=== PATIENT | female | born 1980 | race Caucasian/White ===

== ENCOUNTER 2024-08-10 15:39 | Outpatient (CLI) | payer OTHER, SELFPAY ==
--- NOTE | ~2024-08-10 | CT_ITS ---
EXAMINATION: CT sinus wo con DATE: 08/10/2024 16:17 INDICATION: Chronic sinusitis. TECHNIQUE: Computed tomography (CT) of the paranasal sinuses was performed without intravenous contra st. Iterative reconstruction technique was employed. The dose-length product was 355.01 mGy-cm. COMPARISON: None FINDINGS: The frontal and ethmoid sinuses are clear. There is mild mucosal thickening in sphenoid sin us and the maxillary sinuses. There is a mucous retention cyst in right maxillary sinus. There is lef tward deviation of the nasal septum. The ostiomeatal units are patent. IMPRESSION: 1. Mild mucosal thickening in the paranasal sinuses. 2. Leftward deviation of the nasal septum. Reviewed, dictated and finalized at location A.
== END 2024-08-10 15:40 | disposition home or self-care (01) ==
LOC: ANHIMG 15:42
PROVIDERS: PCP Internal Medicine; Visit Provider Otolaryngology
DX: J32.9 Chronic sinusitis, unspecified (principal); J34.2 Deviated nasal septum
CPT/HCPCS: 70486

== ENCOUNTER 2025-01-16 09:15 | Day surgery (SDC) | payer OTHER, SELFPAY ==
[2024-09-27 12:08] VITALS: BMI 35.1
[2024-12-28 08:19] VITALS: BMI 33.0
[2025-01-16 09:46] VITALS: BP 117/80; PULSE 75; RESP 16; TEMP 36.2; O2SAT 99
[2025-01-16] MEDS: LACTATED RINGERS 1,000 ML 150 ML IV CONT (09:49)
--- NOTE | 2025-01-16 09:49 | WPDANESEPPF ---
Anes - Initial Pre Proc Eval Procedure: Operation Date: 01/16/25 11:00 Proposed Procedures p Screening Colonoscopy - Daniel Ayers MD Date/Time: 01/16/25 09:49 Surgeon: Daniel Ayers MD Pre Op Diagnosis: Neoplasm Screening Patient Data Age: 45 Gender: F Height: 1.57 m Weight: 82.45 kg Last Vital Signs Temp 36.2 C L 01/16/25 09:46 Pulse 75 01/16/25 09:46 Resp 16 01/16/25 09:46 BP 117/80 01/16/25 09:46 Pulse Ox 99 01/16/25 09:46 O2 Del Method Room Air 01/16/25 09:46 Allergies Allergy/AdvReac Type Severity Reaction Status Date / Time morphine Allergy Intermediate Itching Verified 01/16/25 09:45 Home Medications ?Medication ?Instructions ?Recorded ?Confirmed ?Type alprazolam 1 mg tablet 1 mg PO TID PRN anxiety 12/28/24 01/16/25 History aspirin 81 mg tablet,delayed 81 mg PO DAILY 12/28/24 01/16/25 History release (Adult Low Dose Aspirin) atorvastatin 10 mg tablet 10 mg PO DAILY 12/28/24 01/16/25 History famotidine 20 mg tablet 20 mg PO BID 12/28/24 01/16/25 History magnesium 500 mg tablet 500 mg PO DAILY 12/28/24 01/16/25 History mecobalamin (vitamin B12) 1,000 1,000 mcg PO DAILY 12/28/24 01/16/25 History mcg chewable tablet multivitamin (Daily Multi-Vitamin 1 tablet PO DAILY 12/28/24 01/16/25 History tablet) omeprazole 20 mg capsule,delayed 20 mg PO DAILY 12/28/24 01/16/25 History release Patient hx anesthesia problems: none Family hx anesthesia problems: none Results Review: All pre-operative results and documents have been reviewed as part of the pre-operative evaluation. [facility] Past Medical History Medical History (Updated 01/16/25 @ 09:50 by Kristian Hsu MD) Obesity Anxiety GERD (gastroesophageal reflux disease) Surgical History Surgical History (Updated 01/16/25 @ 09:50 by Kristian Hsu MD) History of cholecystectomy H/O: hysterectomy Social History Social History Smoking status: Current every day smoker Tobacco type: e-cigarettes/vaping Substance use: current Substance use type: marijuana Other substance usage details: daily Living arrangements: with family Spiritual care concerns: No Anes - Eval Final PreProcedure Day of Procedure 01/16/25 09:49 Patient weight: obese Heart: regular rate and rhythm Lungs: clear to auscultation Airway: Mallampati scale class II Neurological: alert and oriented Last oral intake: >/= 8 hours ASA classification: III Emergent: no Anesthetic plan: proceed Anesthesia type and monitoring: general GIVS and standard monitoring Results Review: All pre-operative results and documents have been reviewed as part of the pre-operative evaluation. Informed Consent: The patient's anesthetic plan and its attendant risks and benefits were discussed with the patient/family/POA. Questions were solicited and answers provided to the satisfaction of the patient/family/POA.
--- NOTE | 2025-01-16 10:19 | PM.IMHP ---
H&P: HPI History of Present Illness Date/Time: 01/16/25 10:19 Chief Complaint: Screening colonoscopy Narrative: This is the patient's first colonoscopy. There are no GI symptoms and there is no family history of colorectal cancer. Review of Systems Review of Systems: All systems reviewed & are unremarkable except as noted in HPI and below PMFSH Past Medical History Medical History (Updated 01/16/25 @ 10:20 by Daniel Ayers MD) Obesity Anxiety GERD (gastroesophageal reflux disease) Surgical History Surgical History (Updated 01/16/25 @ 09:50 by Kristian Hsu MD) History of cholecystectomy H/O: hysterectomy Social History Social History Smoking status: Current every day smoker Tobacco type: e-cigarettes/vaping Substance use: current Substance use type: marijuana Other substance usage details: daily Living arrangements: with family Spiritual care concerns: No Meds Home Medications and Allergies Home Medications ?Medication ?Instructions ?Recorded ?Confirmed ?Type alprazolam 1 mg tablet 1 mg PO TID PRN anxiety 12/28/24 01/16/25 History aspirin 81 mg tablet,delayed 81 mg PO DAILY 12/28/24 01/16/25 History release (Adult Low Dose Aspirin) atorvastatin 10 mg tablet 10 mg PO DAILY 12/28/24 01/16/25 History famotidine 20 mg tablet 20 mg PO BID 12/28/24 01/16/25 History magnesium 500 mg tablet 500 mg PO DAILY 12/28/24 01/16/25 History mecobalamin (vitamin B12) 1,000 1,000 mcg PO DAILY 12/28/24 01/16/25 History mcg chewable tablet multivitamin (Daily Multi-Vitamin 1 tablet PO DAILY 12/28/24 01/16/25 History tablet) omeprazole 20 mg capsule,delayed 20 mg PO DAILY 12/28/24 01/16/25 History release Allergies Allergy/AdvReac Type Severity Reaction Status Date / Time morphine Allergy Intermediate Itching Verified 01/16/25 09:45 Vital Signs Vital Signs - 24 hr 01/16/25 09:46 Temperature 97.2 F L Pulse Rate 75 Respiratory Rate 16 Blood Pressure 117/80 Pulse Oximetry 99 Oxygen Delivery Room Air Exam Const: General: cooperative and healthy appearing Resp: Effort & Inspection: normal respiratory effort and able to speak in complete sentences Auscultation: clear to auscultation bilaterally Cardio: Rate: regular rate Rhythm: regular rhythm GI: Inspection: normal to inspection GI Palp: No No hepatosplenomegaly present Auscultation: normal bowel sounds Rectal Exam: deferred Skin: General skin exam: normal color Psych: Appearance: grossly normal Mental Status: mental status grossly normal Assessment and Plan Assessment and plan (1) Encounter for screening colonoscopy for [id number] patient: Code(s): Z12.11 - Encounter for screening for malignant neoplasm of colon Status: Acute Assessment and Plan: The patient is deemed a good candidate for the procedure. Consent signed. Will proceed.
[2025-01-16] MEDS: SIMETHICONE ORAL SUSPENSION 20 MG/0.3 ML 30 ML BOTTLE 0.6 ML IRRIGATION (10:35)
--- OUTSIDE RECORDS SUMMARY | 2025-01-16 10:40 | XMS_ITS | Data Portability ---
Author Organization [facility] Address [address] [facility] [place] [address] Care Team Providers Care Population Health Manager Name Role Phone SARAH HODGE Primary Care Provider [phone] Assessment Encounter Date Assessment Date Assessment LastModified by Organization Details LastModified Time 09/23/2024 09/23/2024 GERD she is controlled on PPI and H2 sally needs colonoscopy continue with the medicines for anxiety we will look into ENT she apparently was referred to [facility] for surgical evaluation. Healthy lifestyle choices. I have discussed GLP 1 agents with her and she is not interested in them at this time. Follow up 4 months [email or web address] Not available 09/23/2024 21:04:47 01/06/2025 01/06/2025 she has seen ENT. Healthy lifestyle care instructions. We will add Prozac 20 mg for anxiety nicotine patch to help with her nicotine addiction follow up with me in 3 months has a colonoscopy scheduled later this month [email or web address] Not available 01/07/2025 15:01:55 Plan of Treatment Reminders Order Date Submit Date Provider Last Modified By Organization Details Last Modified Time Details Appointments ANY 15 2024 09:15A Chela Hodge MD Not available Not available Not available Lab lipid panel, serum 2023 024 THONG [facility], [address], [place], [address], 09/24/2024 07:10:07 CMP, serum or plasma 2023 024 THONG [facility], [address], [place], [address], 09/24/2024 07:10:08 CBC w/ auto diff 2023 024 HART [facility], [address], [place], [address], 09/24/2024 07:10:10 Referral rhinolo gy referra l 2023 024 debbie [facility], [address] [facility] , [address], [address], [place], [address], 12/02/2024 08:32:14 Procedures None recorde d. Surgeries None recorde d. Imaging CT, sinuses , w/o contras t [address], [place], [address], 08/17/2024 15:41:54 Medication Orders nicotin e 7 mg/24 hr daily transde rmal patch 2024 025 [id number], [address], [place], [place], [id number], 01/06/2025 15:33:23 nicotin e 21 mg/24 hr daily transde rmal patch 2024 025 [facility][id number], [address], [place], [place], [id number], 01/06/2025 15:33:23 nicotin e 14 mg/24 hr daily transde rmal patch 2024 025 [facility][id number], [address], [place], [place], [id number], 01/06/2025 15:33:23 fluoxet ine 20 mg capsule 2024 025 [id number], [address], [place], [place], [id number], 01/06/2025 15:33:23 amoxici llin 875 mg-pota ssium clavula guerda 125 mg tablet 2023 [facility] #[id number], [address], [place], [place], [id number], 09/06/2024 14:56:03 sulfame thoxazo le 800 mg-trim ethopri m 160 mg tablet 2023 024 [facility]ART [id number], [address], [place], [place], [id number], 07/19/2024 13:55:28 Patient TargetsNo targets recorded. Patient Instructions Encounter Date Encounter Id Patient Instructions Last Modified By Organization Details Last Modified Time 09/23/2024 [id number] A healthy lifestyle: care instructions [email or web address] Not available 09/23/2024 15:13:52 01/06/2025 [id number] A healthy lifestyle: care instructions [email or web address] Not available 01/06/2025 15:33:23 Reason for Referral Rhinology Referral for Devia alondra nasal septum Referring Physician: Kristian Cortez, Otolaryngology, Encounter Date: 09/06/2024 Results Created Date Observation Date Name Description Value Unit Range Abnormal Flag Note LastModifiedBy Organization Detail LastModifiedTime 09/23/2009/24/2024 LIPID PANEL cholesterol, total 240 mg/dL 100-19 9 above high normal Not Available [facility] ([facility]) [address] [facility], [place], [address], 09/24/2024 07:10:07 09/23/2009/24/2024 LIPID PANEL triglyceride s 278 mg/dL 0-149 above high normal Not Available [facility] ([facility]) [address] [facility], [place], [address], 09/24/2024 07:10:07 09/23/2009/24/2024 LIPID PANEL HDL cholesterol 61 mg/dL >39 Not Available [facility]) [address] [facility] [place], [address], 09/24/2024 07:10:07 09/23/20 24 09/24/2024 LIPID PANEL VLDL cholesterol chanel 49 mg/dL 5-40 above high normal Not Available [facility] ([facility]) [address] [place], [address], 09/24/2024 07:10:07 09/23/20 24 09/24/2024 LIPID PANEL LDL chol calc ([facility]) 130 mg/dL 0-99 above high normal Not Available [facility] ([facility]) [address] [place], [address], 09/24/2024 07:10:07 09/23/20 24 09/24/2024 COMP. METAB OLIC PANEL (14) glucose 97 mg/dL 70-99 Not Available [facility] ([facility]) [address] [place], [address], 09/24/2024 07:10:08 09/23/20 24 09/24/2024 COMP. METAB OLIC PANEL (14) BUN 12 mg/dL 6-24 Not Available [facility] ([facility]) [address] [place], [address], 09/24/2024 07:10:08 09/23/20 24 09/24/2024 COMP. METAB OLIC PANEL (14) creatinine 0.80 mg/dL 0.57-1 .00 Not Available [facility] ([facility]) [address] [place], [address], 09/24/2024 07:10:08 09/23/20 24 09/24/2024 COMP. METAB OLIC PANEL (14) eGFR 92 mL/mi n/1.7 3 >59 Not Available [facility] ([facility]) [address] [place], [address], 09/24/2024 07:10:08 09/23/20 24 09/24/2024 COMP. METAB OLIC PANEL (14) BUN/creatini ne ratio 15 9-23 Not Available [facility] ([facility]) [address] [facility], [place], [address], 09/24/2024 07:10:08 09/23/20 24 09/24/2024 COMP. METAB OLIC PANEL (14) sodium 138 mmol/ L 134-14 4 Not Available [facility] ([facility]) [address] [facility], [place], [address], 09/24/2024 07:10:08 09/23/20 24 09/24/2024 COMP. METAB OLIC PANEL (14) potassium 4.8 mmol/ L 3.5-5. 2 Not Available [facility] ([facility]) [address] [facility], [place], [address], 09/24/2024 07:10:08 09/23/20 24 09/24/2024 COMP. METAB OLIC PANEL (14) chloride 103 mmol/ L 96-106 Not Available [facility] ([facility]) [address] [facility], [place], [address], 09/24/2024 07:10:08 09/23/20 24 09/24/2024 COMP. METAB OLIC PANEL (14) carbon dioxide, total 22 mmol/ L 20-29 Not Available [facility] ([facility]) [address] [facility], [place], [address], 09/24/2024 07:10:08 09/23/20 24 09/24/2024 COMP. METAB OLIC PANEL (14) calcium 9.7 mg/dL 8.7-10 .2 Not Available [facility] ([facility]) [address] [place], [address], 09/24/2024 07:10:08 09/23/20 24 09/24/2024 COMP. METAB OLIC PANEL (14) protein, total 6.8 g/dL 6.0-8. 5 Not Available [facility] ([facility]) [address] [place], [address], 09/24/2024 07:10:08 09/23/20 24 09/24/2024 COMP. METAB OLIC PANEL (14) albumin 4.6 g/dL 3.9-4. 9 Not Available [facility] ([facility]) [address] [place], [address], 09/24/2024 07:10:08 09/23/20 24 09/24/2024 COMP. METAB OLIC PANEL (14) globulin, total 2.2 g/dL 1.5-4. 5 Not Available [facility] ([facility]) [address] [place], [address], 09/24/2024 07:10:08 09/23/20 24 09/24/2024 COMP. METAB OLIC PANEL (14) bilirubin, total 0.3 mg/dL 0.0-1. 2 Not Available [facility] ([facility]) [address] [place], [address], 09/24/2024 07:10:08 09/23/20 24 09/24/2024 COMP. METAB OLIC PANEL (14) alkaline phosphatase 65 IU/L 44-121 Not Available [facility] ([facility]) [address] [place], [address], 09/24/2024 07:10:08 09/23/20 24 09/24/2024 COMP. METAB OLIC PANEL (14) AST (SGOT) 16 IU/L 0-40 Not Available [facility] ([facility]) [address] [place], [address], 09/24/2024 07:10:08 09/23/20 24 09/24/2024 COMP. METAB OLIC PANEL (14) ALT (SGPT) 20 IU/L 0-32 Not Available [facility] ([facility]) [address] [facility], [place], [address], 09/24/2024 07:10:08 09/23/20 24 09/24/2024 CBC WITH DIFFE RENTI AL/PL ATELE T WBC 10.2 x10e3 /uL 3.4-10 .8 Eff ectiv e Decem prabhu 2023 [place] [id number] 5 WBC will be made* * non-o rdera ble as a stand -norah e order code. Not Available [facility] ([facility]) [address] [facility], [place], [address], 09/24/2024 07:10:10 09/23/20 24 09/24/2024 CBC WITH DIFFE RENTI AL/PL ATELE T RBC 4.63 x10e6 /uL 3.77-5 .28 Not Available [facility] ([facility]) [address] [facility], [place], [address], 09/24/2024 07:10:10 09/23/20 24 09/24/2024 CBC WITH DIFFE RENTI AL/PL ATELE T hemoglobin 14.5 g/dL 11.1-1 5.9 Not Available [facility] ([facility]) [address] [facility], [place], [address], 09/24/2024 07:10:10 09/23/20 24 09/24/2024 CBC WITH DIFFE RENTI AL/PL ATELE T hematocrit 43.2 % 34.0-4 6.6 Not Available [facility] ([facility]) [address] [facility], [place], [address], 09/24/2024 07:10:10 09/23/20 24 09/24/2024 CBC WITH DIFFE RENTI AL/PL ATELE T MCV 93 fL 79-97 Not Available [facility] ([facility]) [address] [facility], [place], [address], 09/24/2024 07:10:10 09/23/20 24 09/24/2024 CBC WITH DIFFE RENTI AL/PL ATELE T MCH 31.3 pg 26.6-3 3.0 Not Available [facility] ([facility]) [address] [facility], [place], [address], 09/24/2024 07:10:10 09/23/20 24 09/24/2024 CBC WITH DIFFE RENTI AL/PL ATELE T MCHC 33.6 g/dL 31.5-3 5.7 Not Available [facility] ([facility]) [address] [facility], [place], [address], 09/24/2024 07:10:10 09/23/20 24 09/24/2024 CBC WITH DIFFE RENTI AL/PL ATELE T RDW 12.8 % 11.7-1 5.4 Not Available [facility] ([facility]) [address] [facility], [place], [address], 09/24/2024 07:10:10 09/23/20 24 09/24/2024 CBC WITH DIFFE RENTI AL/PL ATELE T platelets 649 x10e3 /uL 150-45 0 above high normal Not Available [facility] ([facility]) [address] [facility], [place], [address], 09/24/2024 07:10:10 09/23/20 24 09/24/2024 CBC WITH DIFFE RENTI AL/PL ATELE T neutrophils 50 % notest ab. Not Available [facility] ([facility]) [address] [facility], [place], [address], 09/24/2024 07:10:10 09/23/20 24 09/24/2024 CBC WITH DIFFE RENTI AL/PL ATELE T lymphs 35 % notest ab. Not Available [facility] ([facility]) [address] [facility], [place], [address], 09/24/2024 07:10:10 09/23/20 24 09/24/2024 CBC WITH DIFFE RENTI AL/PL ATELE T monocytes 11 % notest ab. Not Available [facility] ([facility]) [address] [facility], [place], [address], 09/24/2024 07:10:10 09/23/20 24 09/24/2024 CBC WITH DIFFE RENTI AL/PL ATELE T eos 2 % notest ab. Not Available [facility] ([facility]) [address] [facility], [place], [address], 09/24/2024 07:10:10 09/23/20 24 09/24/2024 CBC WITH DIFFE RENTI AL/PL ATELE T basos 2 % notest ab. Not Available [facility] ([facility]) [address] [facility], [place], [address], 09/24/2024 07:10:10 09/23/20 24 09/24/2024 CBC WITH DIFFE RENTI AL/PL ATELE T neutrophils (absolute) 5.1 x10e3 /uL 1.4-7. 0 Not Available [facility] ([facility]) [address] [facility], [place], [address], 09/24/2024 07:10:10 09/23/20 24 09/24/2024 CBC WITH DIFFE RENTI AL/PL ATELE T lymphs (absolute) 3.6 x10e3 /uL 0.7-3. 1 above high normal Not Available [facility] ([facility]) [address] [place], [address], 09/24/2024 07:10:10 09/23/20 24 09/24/2024 CBC WITH DIFFE RENTI AL/PL ATELE T monocytes(ab solute) 1.1 x10e3 /uL 0.1-0. 9 above high normal Not Available [facility] ([facility]) [address] [place], [address], 09/24/2024 07:10:10 09/23/20 24 09/24/2024 CBC WITH DIFFE RENTI AL/PL ATELE T eos (absolute) 0.2 x10e3 /uL 0.0-0. 4 Not Available [facility] ([facility]) [address] [facility], [place], [address], 09/24/2024 07:10:10 09/23/20 24 09/24/2024 CBC WITH DIFFE RENTI AL/PL ATELE T baso (absolute) 0.2 x10e3 /uL 0.0-0. 2 Not Available [facility] ([facility]) [address] [facility], [place], [address], 09/24/2024 07:10:10 09/23/20 24 09/24/2024 CBC WITH DIFFE RENTI AL/PL ATELE T immature granulocytes 0 % notest ab. Not Available [facility] ([facility]) [address] [facility], [place], [address], 09/24/2024 07:10:10 09/23/20 24 09/24/2024 CBC WITH DIFFE RENTI AL/PL ATELE T immature grans (abs) 0.0 x10e3 /uL 0.0-0. 1 Not Available [facility] ([facility]) [address] [facility], [place], [address], 09/24/2024 07:10:10 11/18/19 25 11/19/2024 Cycli c citru llina alondra pepti de IgG Ab [Unit s/vol ume] in Serum or Plasm a cyclic citrullinate d peptide IgG Ab [units/volum e] in serum or plasma high: 3U/mL CCP IGG <0.5 <3.0 U/mL 11/18 11:37 PM [facility] Not Available Not Available 12/08/2024 14:25:36 11/18/19 25 11/19/2024 Cycli c citru llina alondra pepti de IgG Ab [Unit s/vol ume] in Serum or Plasm a Unknown Analyte Antibo dy testin g was perfor med by multip bonny flow immuno assay on the [employer] x platfo rm. Antib claudia testi ng was perfo rmed by multi plex flow immun oassa y on the Bio[employer] ex platf orm. Not Available Not Available 12/08/2024 14:25:36 11/18/19 25 11/19/2024 Cycli c citru llina alondra pepti de IgG Ab [Unit s/vol ume] in Serum or Plasm a interpretati on and review of laboratory results Normal Not Available Not Available 11/26 14:25:36 11/18/19 25 11/18/2024 Iron panel - Serum or Plasm a iron [mass/volume ] in serum or plasma 152 text: 25 - 156 mcg/dL IRON 152 25 - 156 mcg/d L 11/18 12:11 PM [facility] [email or web address] [facility] R LAB Not Available Not Available 12/08/2024 14:25:36 11/18/19 25 11/18/2024 Iron panel - Serum or Plasm a transferrin [mass/volume ] in serum or plasma 302 mg/dL low: 180mg/ dLhigh : 382mg/ dL TRANS LORENZO N 302 180 - 382 mg/dL 11/18 12:11 PM [facility] [employer] [email or web address] [facility] H [facility] R LAB Not Available Not Available 12/08/2024 14:25:36 11/18/19 25 11/18/2024 Iron panel - Serum or Plasm a iron binding capacity [mass/volume ] in serum or plasma 378 text: 265 - 497 mcg/dL TIBC, CALCU LATED 378 265 - 497 mcg/d L 11/18 12:11 PM [facility] [employer] [email or web address] [facility] LAB Not Available Not Available 12/08/2024 14:25:36 11/18/1911/18/2024 Iron panel - Serum or Plasm a iron saturation [mass fraction] in serum or plasma 40 % low: 15%hig h: 62% % SATUR ATION * 40 15 - 62 % 11/18 12:11 PM [facility] Not Available Not Available 12/08/2024 14:25:36 11/18/19 25 11/18/2024 Iron panel - Serum or Plasm a interpretati on and review of laboratory results Normal Not Available Not Available 11/26 14:25:36 11/18/19 25 11/21/2024 Eryth ropoi etin (EPO) [Unit s/vol ume] in Serum or Plasm a erythropoiet in (epo) [units/volum e] in serum or plasma 5 text: 2.6 - 18.5 mIU/mL ERYTH ROPOI ETIN, SERUM 5.0 2.6 - 18.5 mIU/m L 11/21 1:39 PM [facility] AL LABOR ATORI ES Not Available Not Available 12/08/2024 14:25:35 11/18/19 25 11/18/2024 CBC W Auto Diffe renti al panel - Blood leukocytes [#/volume] in blood by automated count 13 text: 4.00 - 12.00 10(3)/ mcL high WBC 13.00 (H) 4.00 - 12.00 10(3) /mcL 11/18 11:49 AM [facility] LAB Not Available Not Available 12/08/2024 14:25:35 11/18/19 25 11/18/2024 CBC W Auto Diffe renti al panel - Blood erythrocytes [#/volume] in blood by automated count 4.74 text: 3.80 - 5.30 10(6)/ mcL RBC 4.74 3.80 - 5.30 10(6) /mcL 11/18 11:49 AM [facility] LAB Not Available Not Available 12/08/2024 14:25:35 11/18/19 25 11/18/2024 CBC W Auto Diffe renti al panel - Blood hemoglobin [mass/volume ] in blood 15 g/dL low: 12g/dL high: 15.8g/ dL HEMOG LOBIN (HGB) 15.0 12.0 - 15.8 g/dL 11/18 11:49 AM [facility] Not Available Not Available 12/08/2024 14:25:35 11/18/19 25 11/18/2024 CBC W Auto Diffe renti al panel - Blood hematocrit [volume fraction] of blood by automated count 43.9 % low: 36%hig h: 47% HEMAT OCRIT (HCT) 43.9 36.0 - 47.0 % 11/18 11:49 AM [facility] Not Available Not Available 12/08/2024 14:25:35 11/18/19 25 11/18/2024 CBC W Auto Diffe renti al panel - Blood MCV [entitic volume] by automated count 92.6 fL low: 82fLhi gh: 96fL MCV 92.6 82.0 - 96.0 fL 11/18 11:49 AM [facility] Not Available Not Available 12/08/2024 14:25:35 11/18/19 25 11/18/2024 CBC W Auto Diffe renti al panel - Blood MCH [entitic mass] by automated count 31.6 pg low: 26pghi gh: 34pg MCH 31.6 26.0 - 34.0 pg 11/18 11:49 AM [facility] Not Available Not Available 12/08/2024 14:25:35 11/18/19 25 11/18/2024 CBC W Auto Diffe renti al panel - Blood MCHC [mass/volume ] by automated count 34.2 g/dL low: 31g/dL high: 36g/dL MCHC 34.2 31.0 - 36.0 g/dL 11/18 11:49 AM [facility] Not Available Not Available 12/08/2024 14:25:35 11/18/19 25 11/18/2024 CBC W Auto Diffe renti al panel - Blood platelets [#/volume] in blood 626 text: 140 - 440 10(3)/ mcL high PLATE LET COUNT 626 (H) 140 - 440 10(3) /mcL 11/18 11:49 AM [facility] Not Available Not Available 12/08/2024 14:25:35 11/18/19 25 11/18/2024 CBC W Auto Diffe renti al panel - Blood erythrocyte distribution width [ratio] by automated count 13.2 % low: 11.8%h igh: 15.5% RDW 13.2 11.8 - 15.5 % 11/18 11:49 AM [facility] Not Available Not Available 12/08/2024 14:25:35 11/18/19 25 11/18/2024 CBC W Auto Diffe renti al panel - Blood platelet mean volume [entitic volume] in blood by automated count 9.1 fL low: 9.7fLh igh: 12.4fL low MPV 9.1 (L) 9.7 - 12.4 fL 11/18 11:49 AM [facility] Not Available Not Available 12/08/2024 14:25:35 11/18/19 25 11/18/2024 CBC W Auto Diffe renti al panel - Blood neutrophils/ 100 leukocytes in blood by automated count 58.9 % low: 47%hig h: 73% NEUTR OPHIL S 58.9 47.0 - 73.0 % 11/18 11:49 AM [facility] Not Available Not Available 12/08/2024 14:25:35 11/18/19 25 11/18/2024 CBC W Auto Diffe renti al panel - Blood lymphocytes/ 100 leukocytes in blood by automated count 30.8 % low: 18%hig h: 42% LYMPH OCYTE S 30.8 18.0 - 42.0 % 11/18 11:49 AM [facility] Not Available Not Available 12/08/2024 14:25:35 11/18/19 25 11/18/2024 CBC W Auto Diffe renti al panel - Blood monocytes/10 0 leukocytes in blood by automated count 7.6 % low: 4%high : 12% MONOC YTES 7.6 4.0 - 12.0 % 11/18 11:49 AM [facility] Not Available Not Available 12/08/2024 14:25:35 11/18/19 25 11/18/2024 CBC W Auto Diffe renti al panel - Blood eosinophils/ 100 leukocytes in blood by automated count 1.6 % low: 0%high : 5% EOSIN OPHIL S 1.6 0.0 - 5.0 % 11/18 11:49 AM [facility] Not Available Not Available 12/08/2024 14:25:35 11/18/19 25 11/18/2024 CBC W Auto Diffe renti al panel - Blood basophils/10 0 leukocytes in blood by automated count 1.1 % low: 0%high : 1% high BASOP HILS 1.1 (H) 0.0 - 1.0 % 11/18 11:49 AM [facility] Not Available Not Available 12/08/2024 14:25:35 11/18/19 25 11/18/2024 CBC W Auto Diffe renti al panel - Blood neutrophils [#/volume] in blood by automated count 7.66 text: 1.60 - 7.70 10(3)/ mcL ABSOL NISQUALLY NEUTR OPHIL S 7.66 1.60 - 7.70 10(3) /mcL 11/18 11:49 AM [facility] Not Available Not Available 12/08/2024 14:25:35 11/18/19 25 11/18/2024 CBC W Auto Diffe renti al panel - Blood lymphocytes [#/volume] in blood by automated count 4 text: 1.30 - 3.20 10(3)/ mcL high ABSOL NISQUALLY LYMPH OCYTE S 4.00 (H) 1.30 - 3.20 10(3) /mcL 11/18 11:49 AM [facility] C[facility] LAB Not Available Not Available 12/08/2024 14:25:35 11/18/19 25 11/18/2024 CBC W Auto Diffe renti al panel - Blood monocytes [#/volume] in blood by automated count 0.99 text: 0.20 - 1.00 10(3)/ mcL ABSOL NISQUALLY MONOC YTES 0.99 0.20 - 1.00 10(3) /mcL 11/18 11:49 AM [facility] Not Available Not Available 12/08/2024 14:25:35 11/18/19 25 11/18/2024 CBC W Auto Diffe renti al panel - Blood eosinophils [#/volume] in blood by automated count 0.21 text: 0.00 - 0.40 10(3)/ mcL ABSOL NISQUALLY EOSIN OPHIL 0.21 0.00 - 0.40 10(3) /mcL 11/18 11:49 AM [facility] Not Available Not Available 12/08/2024 14:25:35 11/18/19 25 11/18/2024 CBC W Auto Diffe renti al panel - Blood basophils [#/volume] in blood by automated count 0.14 text: 0.00 - 0.10 10(3)/ mcL high ABSOL NISQUALLY BASOP HILS 0.14 (H) 0.00 - 0.10 10(3) /mcL 11/18 11:49 AM [facility] Not Available Not Available 12/08/2024 14:25:35 11/18/19 25 11/18/2024 CBC W Auto Diffe renti al panel - Blood nucleated erythrocytes /100 leukocytes [ratio] in blood 0 NRBC PER 100 WBC 0 11/18 11:49 AM [facility] LAB Not Available Not Available 12/08/2024 14:25:35 11/18/19 25 11/18/2024 CBC W Auto Diffe renti al panel - Blood interpretati on and review of laboratory results Abnorm al Not Available Not Available 14:25:35 11/18/19 25 11/21/2024 PERIP HERAL BLOOD , FLOW CYTOM ETRY pathology report final diagnosis narrative Periph eral blood, flow cytome tric analys is: - No abnorm al lympho id or progen itor cell popula tion is detect ed. FINAL DIAGN OSIS Perip heral blood , flow cytom etric jaxon sis: - No abnor mal lymph oid or proge nitor cell popul ation is detec alondra. 11/21 1:07 PM [facility] [employer] Elect radha watson kimo d by Peg matthews MD on 2024 at 1306 CHANNEL CEMENTER Not Available Not Available 12/08/2024 14:25:35 11/18/19 25 11/21/2024 PERIP HERAL BLOOD , FLOW CYTOM ETRY clinical information Mild lympho cytosi s Clini chanel Infor matio n Mild lymph ocyto sis 11/21 1:07 PM [facility] [employer] Not Available Not Available 12/08/2024 14:25:35 11/18/19 25 11/21/2024 PERIP HERAL BLOOD , FLOW CYTOM ETRY specimen source Receiv ed in an EDTA antico agulat ed tube is 1 mL periph eral blood. Speci men Sourc e Recei linda in an EDTA antic oagul ated tube is 1 mL perip heral blood . 11/21 1:07 PM [facility] Not Available Not Available 12/08/2024 14:25:35 11/18/19 25 11/21/2024 PERIP HERAL BLOOD , FLOW CYTOM ETRY pathology report microscopic observation narrative other stain Periph eral blood smear review shows a hetero geneou s WBC popula tion. Specim en proces sed [facility]. This docume nt was comple alondra utiliz ing speech recogn ition softwa re. Gramma tical errors , random word insert ions, pronou n errors , and incomp lete senten rishi are an occasi onal conseq uence of this system due to softwa re limita tions, ambien t noise, and hardwa re issues . Any formal questi ons or concer ns about the conten t, text or inform ation contai beverley within the body of this dictat ion should be direct ly addres sed to the provid er for clarif icatio n. Micro scopi c Descr iptio n Perip heral blood smear revie w shows a heter ogene ous WBC popul ation . [facility]i [facility] [place]. This docum ent was compl eted utili zing speec h recog nitio n softw are. Gramm atica l error s, rando m word inser tions , prono un error s, and incom plete sente nces are an occas ional conse quenc e of this syste m due to softw are limit ation s, ambie nt noise , and hardw are issue s. Any forma l quest ions or joselyn rns about the marianna nt, text or infor matio n conta ined withi n the body of this dicta tion shoul d be direc tly addre ssed to the provi michele for ashlee ficat ion. 11/21 1:07 PM [facility] Not Available Not Available 12/08/2024 14:25:35 11/18/19 25 11/21/2024 PERIP HERAL BLOOD , FLOW CYTOM ETRY immunophenot ypic findings Flow cytome tric analys is shows a hetero geneou s cellul ar popula tion. Blasts are not increa sed. Immuno phenot ypical ly unrema rkable T-cell s (CD4:C D8 = 4.5) and polycl onal B-cell s are presen t. CELL POPULA TIONS: 52% granul ocytes , 6% monocy maris, 21% T-cell s, 3% B-cell s, <1% blasts . Immun ophen otypi c Findi ngs Flow cytom etric jaxon sis shows a heter ogene ous cellu lar popul ation . Blast s are not incre ased. Immun ophen otypi chemo unrem arkab le T-allison ls (CD4: CD8 = 4.5) and polyc lonal B-allison ls are prese nt. CELL POPUL ATION S: 52% granu locyt es, 6% monoc ytes, 21% T-allison ls, 3% B-allison ls, <1% blast s. 11/21 1:07 PM [facility] Not Available Not Available 12/08/2024 14:25:35 11/18/19 25 11/21/2024 PERIP HERAL BLOOD , FLOW CYTOM ETRY immunophenot yping study Flow marker s perfor med (23): CD2, CD3, CD4, CD5, CD7, CD8, CD10, CD13, CD15, CD19, CD20, CD33, CD34, CD38, CD45, CD56, CD117, CD123, CD200, kappa, lambda , HLA-DR , TCR gamma/ delta This test was develo ped and its perfor valerie charac terist ics determ ined by [facility]. It has not been cleare d or approv ed by the U.S. Food and Drug Admini strati on. Pheno typin g Marke rs Utili zed Flow marke rs perfo rmed (23): CD2, CD3, CD4, CD5, CD7, CD8, CD10, CD13, CD15, CD19, CD20, CD33, CD34, CD38, CD45, CD56, CD117 , CD123 , CD200 , kappa , lambd a, HLA-D R, TCR gamma /delt a This test was devel oped and its perfo rmanc e jone cteri stics deter mined by [facility] [email or web address] . It has not been clear ed or appro linda by the U.S. Food and Drug Admin istra tion. 11/21 1:07 PM [facility] Not Available Not Available 12/08/2024 14:25:35 11/18/19 25 11/21/2024 PERIP HERAL BLOOD , FLOW CYTOM ETRY case report Flow Cytome try Report Case: [id number] Author izing Provid er: Iva Stephenson PAC [facility] alondra: 2024 11:34 AM Orderi ng Locati on: [facility] ed: 2024 11:34 AM [facility] Oncnyla Acosta es Pathol ogist: Jimbo Uriostegui MD Specim en: Blood Case Repor t Flow Cytom etry Repor t Case: [id number] Autho rielena g Provi michele: Meka Godinez PAC Colle cted: 11/18 11:34 AM [facility] ing [facility] 11:34 [facility] Patho logis t: Peg Mora MD Speci men: Blood 11/21 1:07 PM [facility] Not Available Not Available 12/08/2024 14:25:35 11/18/19 25 11/23/2024 JAK2 gene p.Perlita 617Ph e [Pres ence] in Blood or Tissu e by Fin [employer] metho d jak2 gene.P.val61 7phe mutant/mehrdad l in blood or tissue by molecular genetics method see interp retati on JAK2 RESUL T see inter preta tion 11/23 9:54 AM [facility] Not Available Not Available 12/08/2024 14:25:35 11/18/19 25 11/23/2024 JAK2 gene p.Perlita 617Ph e [Pres ence] in Blood or Tissu e by [employer] metho d jak2 gene [id number] [presence] in blood or tissue by molecular genetics method SEE NOTE 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 SEE NOTE 11/23 9:54 AM [facility] AT[facility]I ES Not Available Not Available 12/08/2024 14:25:35 11/18/19 25 11/21/2024 Immun oglob ulin light chain s.varsha e panel - Serum kappa light chains.free [mass/volume ] in serum 13.27 mg/L low: 3.3mg/ Lhigh: 19.4mg /L Free [place] [facility] 13.27 3.30 - 19.40 mg/L 11/21 9:48 AM [facility] Not Available Not Available 12/08/2024 14:25:35 11/18/19 25 11/21/2024 Immun oglob ulin light chain s.varsha e panel - Serum lambda light chains.free [mass/volume ] in serum or plasma 12.09 mg/L low: 5.71mg /Lhigh : 26.3mg /L Free [place] [facility] 12.09 5.71 - 26.30 mg/L 11/21 9:48 AM [facility] Not Available Not Available 12/08/2024 14:25:35 11/18/19 25 11/21/2024 Immun oglob ulin light chain s.varsha e panel - Serum kappa light chains.free/ lambda light chains.free [mass ratio] in serum 1.1 low: 0.26hi gh: 1.65 free darvin bertrand ratio 1.10 0.26 - 1.65 11/21 9:48 AM [facility] Not Available Not Available 12/08/2024 14:25:35 11/18/19 25 11/21/2024 Immun oglob ulin light chain s.varsha e panel - Serum interpretati on and review of laboratory results Normal Not Available Not Available 11/26 14:25:35 11/18/19 25 11/18/2024 Cobal fox (Veena min B12) [Mass /volu me] in Serum or Plasm a cobalamin (vitamin B12) [mass/volume ] in serum or plasma 791 pg/mL low: 213pg/ mLhigh : 816pg/ mL VITAM IN B12 791 213 - 816 pg/mL 11/18 12:40 PM [facility] Not Available Not Available 12/08/2024 14:25:35 11/18/19 25 11/18/2024 Cobal fox (Veena min B12) [Mass /volu me] in Serum or Plasm a interpretati on and review of laboratory results Normal Not Available Not Available 11/26 14:25:35 11/18/19 25 11/18/2024 Eryth rocyt e sedim entat ion rate erythrocyte sedimentatio n rate high: 20mm/h ESR (SED RATE, ERYTH ROCYT E SEDIM ENTAT ION RATE) <1 <20 mm/h 11/18 11:55 AM [facility] Not Available Not Available 12/08/2024 14:25:35 11/18/19 25 11/18/2024 Eryth rocyt e sedim entat ion rate interpretati on and review of laboratory results Normal Not Available Not Available 11/26 14:25:35 11/18/19 25 11/18/2024 Rheum atoid facto r [Unit s/vol ume] in Serum or Plasm a rheumatoid factor [units/volum e] in serum or plasma text: <30 IU/mL RHEUM ATOID FACTO R QT <13 <30 IU/mL 11/18 12:09 PM [facility] Not Available Not Available 12/08/2024 14:25:35 11/18/19 25 11/18/2024 Rheum atoid facto r [Unit s/vol ume] in Serum or Plasm a Unknown Analyte RHEUMA TOID FACTOR S CAN BE FOUND IN RHEUMA TOID ARTHRI TIS, SYPHIL IS, VIRAL INFECT IONS, LEPROS Y, CHRONI C LIVER DISEAS E, NEOPLA SMS, AND OTHER INFLAM MATORY CONDIT IONS. RF PREVAL ENCE ALSO INCREA SES WITH AGE. THUS A POSITI VE TEST IS NOT RESTRI CTED TO RA. CONVER SELY, A NEGATI VE TEST DOES NOT RULE OUT RA, RHEUMA TOID FACTOR S ARE NOT DETECT ABLE IN 10% OF ADULTS WITH THE DISEAS E. RHEUM ATOID FACTO RS CAN BE FOUND IN RHEUM ATOID ARTHR ITIS, SYPHI LIS, VIRAL INFEC TIONS , LEPRO SY, CHRON IC LIVER DISEA SE, NEOPL ASMS, AND OTHER INFLA MMATO RY CONDI TIONS . RF PREVA LENCE ALSO INCRE ASES WITH AGE. THUS A POSIT LEILANI TEST IS NOT RESTR ICTED TO RA. CONVE RSELY , A NEGAT LEILANI TEST DOES NOT RULE OUT RA, RHEUM ATOID FACTO RS ARE NOT DETEC TABLE IN 10% OF ADULT S WITH THE DISEA SE. Not Available Not Available 12/08/2024 14:25:35 11/18/19 25 11/18/2024 Rheum atoid facto r [Unit s/vol ume] in Serum or Plasm a interpretati on and review of laboratory results Normal Not Available Not Available 11/26 14:25:35 11/18/19 25 11/18/2024 Lacta te dehyd rogen ase [Enzy matic activ ity/v olume ] in Serum or Plasm a by Lacta te to pyruv ate react ion lactate dehydrogenas e [enzymatic activity/vol ume] in serum or plasma by lactate to pyruvate reaction 187 U/L low: 125U/L high: 220U/L LDH 187 125 - 220 U/L 11/18 12:11 PM [facility] Not Available Not Available 12/08/2024 14:25:35 11/18/19 25 11/18/2024 Lacta te dehyd rogen ase [Enzy matic activ ity/v olume ] in Serum or Plasm a by Lacta te to pyruv ate react ion interpretati on and review of laboratory results Normal Not Available Not Available 11/26 14:25:35 11/18/19 25 11/22/2024 Prote in elect ropho resis and Immun oglob ulins panel - Serum protein [mass/volume ] in serum or plasma 7 g/dL low: 6g/dLh igh: 8g/dL TOTAL PROTE IN 7.0 6.0 - 8.0 g/dL 11/22 2:31 PM [facility] Not Available Not Available 12/08/2024 14:25:35 11/18/19 25 11/22/2024 Prote in elect ropho resis and Immun oglob ulins panel - Serum albumin/prot ein.total in serum or plasma by electrophore sis 62.6 % low: 55.8%h igh: 66.7% % ALBUM IN 62.6 55.8 - 66.7 % 11/22 2:31 PM [facility] Not Available Not Available 12/08/2024 14:25:35 11/18/19 25 11/22/2024 Prote in elect ropho resis and Immun oglob ulins panel - Serum albumin [mass/volume ] in serum or plasma by electrophore sis 4.4 g/dL low: 2.5g/d Lhigh: 5.4g/d L ALBUM IN SERUM 4.4 2.5 - 5.4 g/dL 11/22 2:31 PM [facility] Not Available Not Available 12/08/2024 14:25:35 11/18/19 25 11/22/2024 Prote in elect ropho resis and Immun oglob ulins panel - Serum alpha 1 globulin/pro tein.total in serum or plasma by electrophore sis 1.9 % low: 2.9%hi gh: 4.9% low % ALPHA 1 GLOBU MURALI 1.9 (L) 2.9 - 4.9 % 11/22 2:31 PM [facility] Not Available Not Available 12/08/2024 14:25:35 11/18/19 25 11/22/2024 Prote in elect ropho resis and Immun oglob ulins panel - Serum alpha 1 globulin [mass/volume ] in serum or plasma by electrophore sis 0.1 g/dL low: 0.2g/d Lhigh: 0.4g/d L low ALPHA 1 0.1 (L) 0.2 - 0.4 g/dL 11/22 2:31 PM [facility] Not Available Not Available 12/08/2024 14:25:35 11/18/19 25 11/22/2024 Prote in elect ropho resis and Immun oglob ulins panel - Serum alpha 2 globulin/pro tein.total in serum or plasma by electrophore sis 9.6 % low: 7.1%hi gh: 11.8% % ALPHA 2 GLOBU MURALI 9.6 7.1 - 11.8 % 11/22 2:31 PM [facility] Not Available Not Available 12/08/2024 14:25:35 11/18/19 25 11/22/2024 Prote in elect ropho resis and Immun oglob ulins panel - Serum alpha 2 globulin [mass/volume ] in serum or plasma by electrophore sis 0.7 g/dL low: 0.5g/d Lhigh: 1g/dL ALPHA 2 0.7 0.5 - 1.0 g/dL 11/22 2:31 PM CH[facility] CEMENTER [facility] Not Available Not Available 12/08/2024 14:25:35 11/18/19 25 11/22/2024 Prote in elect ropho resis and Immun oglob ulins panel - Serum beta globulin/pro tein.total in serum or plasma by electrophore sis 12.8 % low: 8.4%hi gh: 13.1% % BETA 12.8 8.4 - 13.1 % 11/22 2:31 PM [facility] Not Available Not Available 12/08/2024 14:25:35 11/18/19 25 11/22/2024 Prote in elect ropho resis and Immun oglob ulins panel - Serum beta globulin [mass/volume ] in serum or plasma by electrophore sis 0.9 g/dL low: 0.5g/d Lhigh: 1.1g/d L BETA- GLOBU MURALI 0.9 0.5 - 1.1 g/dL 11/22 2:31 PM [facility] Not Available Not Available 12/08/2024 14:25:35 11/18/19 25 11/22/2024 Prote in elect ropho resis and Immun oglob ulins panel - Serum gamma globulin/pro tein.total in serum or plasma by electrophore sis 13.1 % low: 11.1%h igh: 18.8% % GAMMA GLOBU MURALI 13.1 11.1 - 18.8 % 11/22 2:31 PM [facility] Not Available Not Available 12/08/2024 14:25:35 11/18/19 25 11/22/2024 Prote in elect ropho resis and Immun oglob ulins panel - Serum gamma globulin [mass/volume ] in serum or plasma by electrophore sis 0.9 g/dL low: 0.7g/d Lhigh: 1.5g/d L GAMMA 0.9 0.7 - 1.5 g/dL 11/22 2:31 PM [facility] Not Available Not Available 12/08/2024 14:25:35 11/18/19 25 11/22/2024 Prote in elect ropho resis and Immun oglob ulins panel - Serum IgG [mass/volume ] in serum or plasma 894 mg/dL low: 552mg/ dLhigh : 1631mg /dL IMMUN OGLOB ULIN G 894 552 - 1,631 mg/dL 11/22 2:31 PM CH[facility] Not Available Not Available 12/08/2024 14:25:35 11/18/19 25 11/22/2024 Prote in elect ropho resis and Immun oglob ulins panel - Serum IgA [mass/volume ] in serum or plasma 116 mg/dL low: 65mg/d Lhigh: 421mg/ dL IMMUN OGLOB ULIN A 116 65 - 421 mg/dL 11/22 2:31 PM [facility] Not Available Not Available 12/08/2024 14:25:35 11/18/19 25 11/22/2024 Prote in elect ropho resis and Immun oglob ulins panel - Serum IgM [mass/volume ] in serum or plasma 112 mg/dL low: 33mg/d Lhigh: 293mg/ dL IMMUN OGLOB ULIN M 112 33 - 293 mg/dL 11/22 2:31 PM [facility] Not Available Not Available 12/08/2024 14:25:35 11/18/19 25 11/22/2024 Prote in elect ropho resis and Immun oglob ulins panel - Serum protein fractions [interpretat ion] in serum or plasma by immunofixati on No abnorm al protei n band is detect ed by serum protei n electr ophore sis. Serum immuno fixati on electr ophore sis is negati ve for monocl onal immuno globul ins. Review ed by Lis Kim, Ph.D. INTER PRETA TION SERUM No abnor mal prote in band is detec alondra by serum prote in elect ropho resis . Serum immun ofixa tion elect ropho resis is negat leilani for monoc lonal immun oglob ulins . Revie wed by Pamela Kim, Ph.D. 11/22 2:31 PM [facility] Not Available Not Available 12/08/2024 14:25:35 11/18/19 25 11/22/2024 Prote in elect ropho resis and Immun oglob ulins panel - Serum albumin/glob ulin [mass ratio] in serum or plasma by electrophore sis 1.7 A/G RATIO , SERUM 1.7 11/22 2:31 PM [facility] Not Available Not Available 12/08/2024 14:25:35 11/18/19 25 11/22/2024 Prote in elect ropho resis and Immun oglob ulins panel - Serum Unknown Analyte Review ed by Jimbo Uriostegui M.D. Revie wed by Peg matthews M.D. Not Available Not Available 12/08/2024 14:25:35 11/18/19 25 11/22/2024 Prote in elect ropho resis and Immun oglob ulins panel - Serum interpretati on and review of laboratory results Abnorm al Not Available Not Available 14:25:35 11/18/19 25 11/18/2024 Folat e [Mass /volu me] in Serum or Plasm a folate [mass/volume ] in serum or plasma 16 NG/mL low: 7NG/mL high: 31.4NG /mL FOLAT E 16.0 7.0 - 31.4 ng/mL 11/18 12:40 PM [facility] Not Available Not Available 12/08/2024 14:25:35 11/18/19 25 11/18/2024 Folat e [Mass /volu me] in Serum or Plasm a thermoactino myces vulgaris IgG Ab [mass/volume ] in serum No IS THE PATIE NT REQUI RED TO BE FASTI NG? No 11/18 12:40 PM [facility] Not Available Not Available 12/08/2024 14:25:35 11/18/19 25 11/18/2024 Lorenzo tin [Mass /volu me] in Serum or Plasm a ferritin [mass/volume ] in serum or plasma 96 NG/mL low: 5NG/mL high: 204NG/ mL LORENZO TIN 96 5 - 204 ng/mL 11/18 12:26 PM [facility] Not Available Not Available 12/08/2024 14:25:34 11/18/19 25 11/18/2024 Lorenzo tin [Mass /volu me] in Serum or Plasm a interpretati on and review of laboratory results Normal Not Available Not Available 11/26 14:25:34 11/18/19 25 11/18/2024 Compr ehens leilani metab olic 1999 panel - Serum or Plasm a sodium [moles/volum e] in serum or plasma 140 mmol/ L low: 136mmo l/Lhig h: 145mmo l/L SODIU M 140 136 - 145 mmol/ L 11/18 12:11 PM [facility] Not Available Not Available 12/08/2024 14:25:34 11/18/19 25 11/18/2024 Compr ehens leilani metab olic 1999 panel - Serum or Plasm a potassium [moles/volum e] in serum or plasma 3.6 mmol/ L low: 3.5mmo l/Lhig h: 5.1mmo l/L POTAS SIUM 3.6 3.5 - 5.1 mmol/ L 11/18 12:11 PM [facility] LAB Not Available Not Available 12/08/2024 14:25:34 11/18/19 25 11/18/2024 Compr ehens leilani metab olic 1999 panel - Serum or Plasm a chloride [moles/volum e] in serum or plasma 110 mmol/ L low: 98mmol /Lhigh : 107mmo l/L high CHLOR SHAKILA 110 (H) 98 - 107 mmol/ L 11/18 12:11 PM [facility] Not Available Not Available 12/08/2024 14:25:34 11/18/19 25 11/18/2024 Compr ehens leilani metab olic 1999 panel - Serum or Plasm a carbon dioxide, total [moles/volum e] in serum or plasma 21 mmol/ L low: 22mmol /Lhigh : 30mmol /L low CO2, VENOU S 21 (L) 22 - 30 mmol/ L 11/18 12:11 PM [facility] Not Available Not Available 12/08/2024 14:25:34 11/18/19 25 11/18/2024 Compr ehens leilani metab olic 2000 panel - Serum or Plasm a anion gap in serum or plasma 12.6 mmol/ L high: 18mmol /L ANION GAP 12.6 <18.0 mmol/ L 11/18 12:11 PM [facility] Not Available Not Available 12/08/2024 14:25:34 11/18/19 25 11/18/2024 Compr ens leilani metab olic 1999 panel - Serum or Plasm a glucose [mass/volume ] in serum or plasma 103 mg/dL low: 70mg/d Lhigh: 99mg/d L high GLUCO SE 103 (H) 70 - 99 mg/dL 11/18 12:11 PM [facility] Not Available Not Available 12/08/2024 14:25:34 11/18/19 25 11/18/2024 Compr ens leilani metab olic 1999 panel - Serum or Plasm a urea nitrogen [mass/volume ] in serum or plasma 9 mg/dL low: 5mg/dL high: 18mg/d L BUN 9 5 - 18 mg/dL 11/18 12:11 PM [facility] [employer] R LAB Not Available Not Available 12/08/2024 14:25:34 11/18/19 25 11/18/2024 Compr [employer] leilani metab olic 1999 panel - Serum or Plasm a creatinine [mass/volume ] in serum or plasma 0.89 mg/dL low: 0.6mg/ dLhigh : 1mg/dL CREAT ININE , BLOOD 0.89 0.60 - 1.00 mg/dL 11/18 12:11 PM [facility] LAB Not Available Not Available 12/08/2024 14:25:34 11/18/19 25 11/18/2024 Compr [employer] leilani metab olic 1999 panel - Serum or Plasm a urea nitrogen/cre atinine [mass ratio] in serum or plasma 10 text: 12 - 20 ratio low BUN/C REATI NINE RATIO 10 (L) 12 - 20 ratio 11/18 12:11 PM [facility] Not Available Not Available 12/08/2024 14:25:34 11/18/19 25 11/18/2024 Compr [employer] leilani metab olic 1999 panel - Serum or Plasm a protein [mass/volume ] in serum or plasma 7.9 g/dL low: 6g/dLh igh: 8g/dL TOTAL PROTE IN 7.9 6.0 - 8.0 g/dL 11/18 12:11 PM [facility] [employer] [facility] LAB Not Available Not Available 12/08/2024 14:25:34 11/18/19 25 11/18/2024 Compr [employer] leilani metab olic 2000 panel - Serum or Plasm a albumin [mass/volume ] in serum or plasma 4.8 g/dL low: 3.5g/d Lhigh: 5g/dL ALBUM IN 4.8 3.5 - 5.0 g/dL 11/18 12:11 PM [facility] [employer] [facility] LAB Not Available Not Available 12/08/2024 14:25:34 11/18/19 25 11/18/2024 Compr [employer] leilani [employer] olic 2000 panel - Serum or Plasm a albumin/glob ulin [mass ratio] in serum or plasma 1.5 low: 1high: 2.2 A/G RATIO 1.5 1.0 - 2.2 11/18 12:11 PM [facility] [employer] R LAB Not Available Not Available 12/08/2024 14:25:34 11/18/19 25 11/18/2024 Compr [employer] leilani metab olic 2000 panel - Serum or Plasm a calcium [mass/volume ] in serum or plasma 9.1 mg/dL low: 8.7mg/ dLhigh : 10.5mg /dL CALCI UM 9.1 8.7 - 10.5 mg/dL 11/18 12:11 PM [facility] [employer] [facility] LAB Not Available Not Available 12/08/2024 14:25:34 11/18/19 25 11/18/2024 Compr [employer] leilani metab olic 2000 panel - Serum or Plasm a bilirubin.to bart [mass/volume ] in serum or plasma 0.5 mg/dL low: 0.2mg/ dLhigh : 1.2mg/ dL T BILI 0.5 0.2 - 1.2 mg/dL 11/18 12:11 PM [facility] Not Available Not Available 12/08/2024 14:25:34 11/18/19 25 11/18/2024 Compr ehens leilani metab olic 2000 panel - Serum or Plasm a aspartate aminotransfe rase [enzymatic activity/vol ume] in serum or plasma 31 U/L low: 6U/Lhi gh: 42U/L SGOT (AST) 31 6 - 42 U/L 11/18 12:11 PM [facility] Not Available Not Available 12/08/2024 14:25:34 11/18/19 25 11/18/2024 Compr ehens leilani metab olic 2000 panel - Serum or Plasm a alanine aminotransfe rase [enzymatic activity/vol ume] in serum or plasma 41 U/L low: 6U/Lhi gh: 55U/L SGPT (ALT) 41 6 - 55 U/L 11/18 12:11 PM [facility] Not Available Not Available 12/08/2024 14:25:34 11/18/19 25 11/18/2024 Compr ehens leilani metab olic 2000 panel - Serum or Plasm a alkaline phosphatase [enzymatic activity/vol ume] in serum or plasma 75 U/L low: 40U/Lh igh: 150U/L ALKAL INE PHOSP HATAS E 75 40 - 150 U/L 11/18 12:11 PM [facility] Not Available Not Available 12/08/2024 14:25:34 11/18/19 25 11/18/2024 Compr ehens leilani metab olic 2000 panel - Serum or Plasm a IS the patient required to BE fasting? No IS THE PATIE NT REQUI RED TO BE FASTI NG? No 11/18 12:11 PM [facility] Not Available Not Available 12/08/2024 14:25:34 11/18/19 11/18/2024 Compr ehens leilani metab olic 1999 panel - Serum or Plasm a glomerular filtration rate/1.73 sq M.predicted among non-blacks [volume rate/area] in serum, plasma or blood by creatinine-b ased formula (MDRD) low: 60 GFR, ESTIM ATED >60 >=60 11/18 12:11 PM [facility] [employer] [facility] [facility] Not Available Not Available 12/08/2024 14:25:34 11/18/19 25 11/18/2024 Compr ehens leilani metab olic 2000 panel - Serum or Plasm a glomerular filtration rate/1.73 sq M.predicted among blacks [volume rate/area] in serum, plasma or blood by creatinine-b ased formula (MDRD) low: 60 GFR, EST. AFRIC AN >60 >=60 11/18 12:11 PM [facility] [employer] [facility] [facility] Not Available Not Available 12/08/2024 14:25:34 11/18/1911/18/2024 Compr ehens leilani metab olic 2000 panel - Serum or Plasm a glomerular filtration rate/1.73 sq M.predicted among non-blacks [volume rate/area] in serum, plasma or blood by creatinine-b ased formula (MDRD) low: 60 GFR, EST. NONAF RICAN >60 >=60 11/18 12:11 PM [employer] [facility] Not Available Not Available 12/08/2024 14:25:34 11/18/1911/18/2024 Compr ehens leilani metab olic 2000 panel - Serum or Plasm a interpretati on and review of laboratory results Abnorm al Not Available Not Available 14:25:34 11/18/19 25 11/18/2024 C react leilani prote in [Mass /volu me] in Serum or Plasm a C reactive protein [mass/volume ] in serum or plasma high: 0.5mg/ dL C-REGINALD CTIVE PROTE IN <0.10 <0.50 mg/dL 11/18 1:18 PM [facility] Not Available Not Available 12/08/2024 14:25:34 11/18/19 25 11/18/2024 C react leilani prote in [Mass /volu me] in Serum or Plasm a interpretati on and review of laboratory results Normal Not Available Not Available 11/26 14:25:34 11/18/19 25 11/21/2024 Nucle ar Ab [Tite r] in Serum nuclear Ab [titer] in serum Negati ve text: negati ve titer CEE SCREE N Negat leilani Negat leilani titer 11/21 1:17 PM [facility] Not Available Not Available 12/08/2024 14:25:34 11/18/19 25 11/21/2024 Nucle ar Ab [Tite r] in Serum nuclear Ab [titer] in serum Negati ve text: negati ve, see commen t, not applic able titer CEE TITER Negat leilani Negat leilani, See comme nt, Not Appli cable titer 11/21 1:17 PM [facility] Not Available Not Available 12/08/2024 14:25:34 11/18/19 25 11/21/2024 Nucle ar Ab [Tite r] in Serum nuclear Ab pattern [interpretat ion] in serum NOT APPLIC ABLE CEE PATTE RN NOT APPLI CABLE 11/21 1:17 PM CHANNEL CEMENTER [facility] Not Available Not Available 12/08/2024 14:25:34 08/10/20 24 08/10/2024 CT, sinus es, w/o contr ast No observ ation record ed. [facility] [address], [place], [address], 09/06/2024 10:40:16 Result Notes None recorded. Problems Name Problem SNOMED Code Status Onset Date Resolution Date Notes Provider Name and Address Organization Details Recorded Time History of hysterectomy 486419935 Active 2020 LUIS Andrews 11:26:15 Generalized anxiety disorder 49554195 Active 2020 LUIS Andrews SIRissa 11:26:52 Gastroesophage al reflux disease 426558520 Active 2020 Alphonso العراقي, [place] - [facility] 1 11:26:58 History of splenectomy 953707052 Active 2020 Alphonso الع[place], [place] [facility] 1 11:27:05 Chronic sinusitis 00001490 Active 2023 Cristhian Richmond [place], [place] [facility] 4 16:09:50 Anxiety 74790236 Active 2023 Cristhian [place] [facility] 4 16:09:51 Gastroesophage al reflux disease without esophagitis 233791729 Active 2023 Cristhian [place] [facility] 4 16:09:52 Hyperlipidemia 04044946 Active 2023 Sarah Hodge MD Attn: Qing g,[address] [place], [address], [place] [facility] 4 20:57:51 Obesity 670722584 Active 2023 Sarah Hodge MD Attn: Accountin g,[address] [place], [address], [place] [facility] 4 20:57:56 Problem Notes None recorded. Procedures Surgical History Date Name Laterality Status Provider Name and Address Organization Details Recorded Time 10/26/19 08 procedure on urinary bladder completed CHESTER Hicks - [facility] 04/02/2021 10:09:58 03/26/20 06 splenectomy completed Paulette Steele [place] - [facility] 04/02/2021 10:08:44 10/26/19 06 Total Abdominal Hysterectomy completed Paulette Steele MA [place] - [facility] 04/02/2021 10:07:59 Imaging Results Imaging Date Name Status LastModified by Organiz ation Details LastModified Time 08/10/2024 CT, sinuses, w/o contrast completed [facility] [address], [place], [address], 09/06/2024 10:40:16 Procedure Notes None recorded. Medical Equipment None Reported. Allergies Allergen ID Allergen Name Allergen Category Reaction Reaction Severity Criticality Documentation Date Start Date Code Code System Note Provider Name and Address Organization Details Recorded Time 719414 morphine medicatio n facial swelling severe Not available 04/02/2021 7052 RxNorm itchi ng, cb-rm a Not Available Not Available Not Available 084707 doxycycli ne Not available lighthead edness Not available Not available 06/09/20242023 3640 RxNorm weak, shaky and dizzy Not Available Not Available Not Available Medications Name Sig Start Date Stop Date Status Note LastModified by Organization Details LastModified Time atorvastati n 80 mg tablet TAKE 1 TABLET BY MOUTH DAILY 11/03 completed Not Available Not Available Not Available doxycycline hyclate 100 mg capsule TAKE 1 CAPSULE BY MOUTH TWICE DAILY 07/05 completed Not Available Not Available Not Available paroxetine 10 mg tablet TAKE 1 TABLET BY MOUTH EVERY DAY 06/07 completed Not Available Not Available Not Available nicotine 14 mg/24 hr daily transdermal patch APPLY 1 PATCH TOPICALLY TO THE SKIN EVERY DAY active Not Available Not Available No t Available atorvastati n 10 mg tablet TAKE 1 TABLET BY MOUTH EVERY DAY active Not Available Not Available No t Available alprazolam 1 mg tablet TAKE 1 TABLET BY MOUTH THREE TIMES DAILY NEEDED active Not Available Not Available No t Available metronidazo le 500 mg tablet TAKE 1 TABLET BY MOUTH TWICE DAILY 05/02 completed Not Available Not Available Not Available phentermine 37.5 mg tablet TAKE 1 TABLET BY MOUTH EVERY DAY 11/03 completed Not Available Not Available Not Available ciprofloxac in 250 mg tablet TAKE 1 TABLET BY MOUTH TWICE DAILY 11/03 completed Not Available Not Available Not Available sulfamethox azole 800 mg-trimetho prim 160 mg tablet TAKE 1 TABLET BY MOUTH EVERY 12 HOURS 07/19 completed Not Available Not Available Not Available famotidine 20 mg tablet take 1 tablet by mouth twice daily active Not Available Not Available No t Available nicotine 21 mg/24 hr daily transdermal patch UNWRAP AND APPLY 1 PATCH TO SKIN EVERY DAY active Not Available Not Available No t Available oxybutynin chloride ER 5 mg tablet,exte nded release 24 hr TAKE 1 TABLET BY MOUTH EVERY DAY 06/07 completed Not Available Not Available Not Available omeprazole 20 mg capsule,del ayed release TAKE 1 CAPSULE BY MOUTH DAILY active Not Available Not Available No t Available cefuroxime axetil 500 mg tablet TAKE 1 TABLET BY MOUTH TWICE DAILY 06/07 completed Not Available Not Available Not Available estradiol 0.01% (0.1 mg/gram) vaginal cream .5 gm intravagi leo daily for two weeks, then twice weekly. 05/02 completed Not Available Not Available Not Available fluoxetine 20 mg capsule TAKE 1 CAPSULE BY MOUTH EVERY DAY active Not Available Not Available No t Available fluticasone propionate 50 mcg/actuati on nasal spray,suspe nsion SHAKE LIQUID AND USE 2 SPRAYS IN EACH NOSTRIL EVERY DAY active Not Available Not Available No t Available amoxicillin 875 mg-potassiu m clavulanate 125 mg tablet TAKE 1 TABLET BY MOUTH EVERY 12 HOURS 09/06 completed Not Available Not Available Not Available nicotine 7 mg/24 hr daily transdermal patch APPLY 1 PATCH TOPICALLY TO THE SKIN EVERY DAY active Not Available Not Available No t Available Sprintec (28) 0.25 mg-0.035 mg tablet take one tablet daily orally 04/02 completed Not Available Not Available Not Available Premarin 0.625 mg/gram vaginal cream insert vaginally every day for two weeks, then use twice weekly. 05/02 completed Not Available Not Available Not Available Vascepa 1 gram capsule TAKE 1 CAPSULE BY MOUTH TWICE A DAY 04/02 completed Not Available Not Available Not Available Vitals Date Recorded Body height Body mass index (BMI) Body weight Heart rate Respiratory rate Body temperature Systolic blood pressure Diastolic blood pressure Provider Name and Address Organization Details Last Updated DateTime 4 157.48 cm 35.4 kg/m2 26351.8 4 g 98 /min 16 /min 98.1 [degF] 136 mm[Hg] 82 mm[Hg] Danna Hull [place] - [facility] 4 11:40:12 Date Recorded Body height Heart rate Respiratory rate Body temperature Body mass index (BMI) Body weight Systolic blood pressure Diastolic blood pressure Provider Name and Address Organization Details Last Updated DateTime 4 157.48 cm 91 /min 18 /min 97.5 [degF] 35.6 kg/m2 60488.0 8 g 120 mm[Hg] 82 mm[Hg] Susie Can MA [facility] 4 13:54:36 Date Recorded Body height Body mass index (BMI) Body weight Heart rate Respiratory rate Body temperature Systolic blood pressure Diastolic blood pressure Provider Name and Address Organization Details Last Updated DateTime 4 157.48 cm 36.3 kg/m2 92852.8 g 88 /min 16 /min 97.5 [degF] 122 mm[Hg] 78 mm[Hg] Danna Hull MA [facility] 4 14:57:13 Date Recorded Body height Body mass index (BMI) Body weight Heart rate Oxygen saturation Oxygen saturation in Arterial blood by Pulse oximetry Systolic blood pressure Diastolic blood pressure Provider Name and Address Organization Details Last Updated DateTime 4 157.48 cm 35.3 kg/m2 31666.6 1 g 90 /min 98 % 98 % 110 mm[Hg] 76 mm[Hg] Lindsey Wade [facility] 4 14:04:29 Date Recorded Body height Body mass index (BMI) Body weight Heart rate Oxygen saturation Oxygen saturation in Arterial blood by Pulse oximetry Systolic blood pressure Diastolic blood pressure Provider Name and Address Organization Details Last Updated DateTime 5 157.48 cm 33.8 kg/m2 20103.5 1 g 85 /min 99 % 99 % 126 mm[Hg] 80 mm[Hg] Lindsey Wade [facility] 5 11:18:57 Social History Question Answer Notes LastModified by Organization Details LastModified Time Tobacco Smoking Status Former Smoker Paulette Steele MA [facility], [facility] 04/02/2021 10:06:50 Do You Have An Advance Directive? No Information not available 04/02/2021 What Is Your Level Of Alcohol Consumption? None Information not available 04/02/2021 Are You Blind Or Do You Have Difficulty Seeing? No Information not available 06/07/2024 Is Blood Transfusion Acceptable In An Emergency? Yes Information not available 04/02/2021 What Is Your Level Of Caffeine Consumption? Occasional Information not available 04/02/2021 In The 14 Days Before Symptom Onset, Have You Had Close Contact With A Laboratory-con firmed COVID-19 While That Case Was Ill? No Information not available 06/07/2024 In The 14 Days Before Symptom Onset, Have You Had Close Contact With A Person Who Is Under Investigation For COVID-19 While That Person Was Ill? No Information not available 06/07/2024 Have You Been To An Area Known To Be High Risk For COVID-19? No Information not available 06/07/2024 Are You Currently Employed? No Information not available 04/02/2021 Are You Deaf Or Do You Have Serious Difficulty Hearing? No Information not available 06/07/2024 What Type Of Diet Are You Following? REGULAR Information not available 04/02/2021 Which Illicit Or Recreational Drugs Have You Used? Marijuana Information not available 04/02/2021 Do You Or Have You Ever Used E-cigarettes Or Vape? Current User Of Electronic Cigarettes Information not available 06/07/2024 What Is The Highest Grade Or Level Of School You Have Completed Or The Highest Degree You Have Received? [id number] Information not available 04/02/2021 What Was The Date Of Your Most Recent Tobacco Screening? 01/06/2025 Information not available 01/06/2025 How Many Children Do You Have? 2 Information not available 04/02/2021 What Is Your Current Pack Years? 20-29packyears Information not available 04/02/2021 Do You Have Any Pets? Yes [email or web address] Information not available 07/19/2024 Do You Use Protection During Sex? No Information not available 04/02/2021 What Is Your Relationship Status? Information not available 04/02/2021 Do You Use Your Seat Belt Or Car Seat Routinely? Yes Information not available 09/23/2024 Are You Sexually Active? Yes Information not available 04/02/2021 Do You Have Smoke And Carbon Monoxide Detectors In Your Home? Yes Information not available 04/02/2021 At What Age Did You Start Smoking Tobacco? 21 Information not available 04/02/2021 Are You Passively Exposed To Smoke? Yes Information not available 04/02/2021 Do You Or Have You Ever Used Smokeless Tobacco? Never Used Smokeless Tobacco Information not available 06/07/2024 Do You Feel Stressed (tense, Restless, Nervous, Or Anxious, Or Unable To Sleep At Night)? CP1985-3 Information not available 06/07/2024 Do You Use Any Illicit Or Recreational Drugs? Yes Information not available 04/02/2021 Do You Use Sunscreen Routinely? Yes Information not available 04/02/2021 Has Tobacco Cessation Counseling Been Provided? Yes Information not available 04/02/2021 On What Date Was Tobacco Cessation Counseling Provided? 01/06/2025 Information not available 01/06/2025 How Many Years Have You Smoked Tobacco? 20 Information not available 04/02/2021 What Type Of Noise Exposure Are You Exposed To? NoExposureToExcessiveNoise [facility] In[facility] mation not available 06/07/2024 Have You Used IV Drugs? No Information not available 04/02/2021 Do You Or Have You Ever Used Any Other Forms Of Tobacco Or Nicotine? Yes Information not available 06/07/2024 Sex: Female Functional Status Question Answer Note LastModified by Organizat ion Details LastModified Time Are you able to care for yourself? Yes Information not available 09/23/2024 What is your exercise level? Occasional Information not available 04/02/2021 Mental Status None recorded. Family History Nothing Reported. Medical History Condition Response High Blood Pressure N Breast Cancer N Thyroid Problems N Kidney or Bladder Problems Y GI Problems N Lung Disease N Blood Clots N Depression N Eating Disorder N Breast Problem N Anesthesia Complications N Headaches/Migraines N Anxiety Disorder Y Diabetes N Ovarian Cancer N Blood Transfusions N Seizures/Epilepsy N Polyps Y Infertility N Acid Reflux (GERD) Y Cancer N Endometriosis N High Cholesterol N Hepatitis N Heart Disease N Pre-Eclampsia N Gynecological History Statement/Question Response Abnormal Pap Y Date of LMP STIs/STDs N HPV Vaccine N Most Recent Mammogram Current Control Method Hysterectom y Age at First Child 15 Sexually Active? Y Menses Monthly N Date of Last Pap Smear Sexual Problems? N LMP Approximate Desired Control Method None Obstetrics History GPAL:G 2 P 2 0 0 2 Type Value Multiple Births 0 Full Term 2 Induced 0 Spontaneous 0 Premature 0 Living 2 Ectopics 0 Total 2 Immunizations Vaccine Type Date Status Note Provider Nam e and Address Organization Details Recorded Time Influenza, split virus, trivalent, preservative 4 completed Lindsey Wade [place], [place] [facility] 01/06/2025 09:09:06 Influenza, split virus, trivalent, preservative 4 completed Lindsey Wade [place] [facility] 01/06/2025 09:09:07 Influenza, split virus, quadrivalent, PF 5 completed CHESTER Pedraza, [place] [facility] 01/06/2025 09:09:07 Past Encounters Encounter ID Performer Location Encounter Start Date Encounter Closed Date Diagnosis/Indication Diagnosis SNOMED-CT Code Diagnosis ICD10 Code Diagnosis Note [id number] Alphonso Bosch Ai ([facility]) [address] [place] [address] 04/02/2021 09:37:54 04/06/2021 13:55:11 History of hysterectomy 305057186 Z90.711 History of splenectomy 696617608 Z90.81 Screening for malignant neoplasm of breast 167456045 Z12.39 [id number] MD Ai Berry (Adult Med) [address] [place] [address] 11/03/2023 13:49:14 11/04/2023 16:27:47 Venereal disease screening 636931734 Z11.3 Screening for malignant neoplasm of cervix 839779380 Z12.4 Patient believes she had a partial hysterecto my. Exam was consistent with vaginal cuff. Intolerant of heat 03525 007 R20.8 Has multiple symptoms which are consistent with menopause, and she is the age that her mother was when she experience d menopause. I will check a TSH to rule out thyroid disease and check a FSH to see if it confirms menopause. We can then discuss treatment of menopause symptoms and consider hormones if she has no contraindi cations to hormone treatment. Screening for malignant neoplasm of breast 499931639 Z12.39 Dense breast tissue in upper outer quadrants. Will get screening mammograms . History of splenectomy 520792382 Z90.81 She has a primary care provider. When she presents for follow up I will ask her if she has discussed immunizati ons with him. [id number] [facility] [address] [place] [address] 11/25/2023 16:23:05 11/26/2023 11:21:20 Obesity 837414827 E66.9 Menopausal syndrome 1237 17190 N95.9 Concerned about treating with estrogen due to family history of CVA. Unable to confirm if CVA was ischemic or hemorrhagi c. Believes stroke was hemorrhagi c, but would like to have it confirmed. Explained to patient that there may be an increased risk of ischemic stroke with estrogen treatment, She will see if she can get more informatio n and we will avoid hormone treatment for the time being. Will try treating with Paxil for postmenopa usal symptoms. Follow up in six weeks. Advised her to avoid taking the Paxil at the same time as Alprazolam . Vaginal dryness 93874635 N89.8 Treat vaginal dryness with topical estrogen. [id number] Sarah Hodge MD [facility] [address] [place] [address] 05/02/2024 14:30:09 05/02/2024 16:12:49 Chronic sinusitis 86449396 J32.9 Anxiety 07524906 F41.9 Gastroesop hageal reflux disease without esophagitis 137756356 K21.9 Screening for cardiovascular system disease 852920544 Z13.6 Long-term drug therapy 335433376 Z79.051 [id number] MD Yanique Amaya (Adult Med) [address] [place] [address] 06/07/2024 11:01:06 06/20/2024 08:28:54 Chronic sinusitis 10158582 J32.9 stop over the counter sprays follow up 3 weeks Acute sinusitis 55445004 J01.90 [id number] MD Yanique Amaya (Adult Med) [address] [place] [address] 07/05/2024 11:34:08 07/08/2024 10:08:21 Chronic sinusitis 55157924 J32.9 stop over the counter sprays follow up 3 weeks follow up in two weeks [id number] [facility] [address] [place] [address] 07/19/2024 13:40:59 07/20/2024 14:18:02 Chronic sinusitis 37272564 J32.9 stop over the counter sprays follow up 3 weeks follow up in two weeks [address] [place] [id number] MD Sharon Amayahalto (Adult Med) [address] [place] [address] 09/06/2024 14:52:37 09/07/2024 09:47:07 Chronic sinusitis 00174920 J32.9 stop over the counter sprays follow up 3 weeks follow up in two weeks follow up after CT Deviated nasal septum 12 3850112 J34.2 [id number] MD [facility] [address] [place] [address] 09/23/2024 13:41:50 09/23/2024 14:35:37 Body mass index 30+ - obesity 864164656 Z68.35 Obesity 650575236 E66.9 Hyperlipidemia 58399094 E78.5 Anxiety 14803896 F41.9 Gastroesop hageal reflux disease without esophagitis 316803759 K21.9 Chronic sinusitis 474694 00 J32.9 [id number] MD Ai Guevara (Adult Med) [address] [place] [address] 01/06/2025 10:41:05 01/06/2025 11:57:48 Body mass index 30+ - obesity 865775516 Z68.35 Obesity 504046973 E66.9 Gastroesop hageal reflux disease without esophagitis 386613814 K21.9 Generalize d anxiety disorder 08747063 F41.1 Hyperlipidemia 66316069 E78.5 Cigarette smoker 7450355 7 F17.210 Anxiety 43495587 F41.9 Health Concerns Section Related Observation LastModified by Organization Detai ls LastModified Time None Recorded Concern Status LastModified by Organization Details LastModified Time None Recorded Advance Directives Directive N: Payers Encounter Date Sequence Insurance Name Policy Number Policy Trevino Covered Member ID Trevino Member ID Guarantor Name 07/05/2024 1 [facility] [id number] Estefany Bruzaitis [id number] Estefany Bruzaitis 07/19/2024 1 [facility] [id number] Estefany Bruzaitis [id number] Estefany Bruzaitis 09/06/2024 1 [facility] [id number] Estefany Bruzaitis [id number] Estefany Bruzaitis 09/23/2024 1 [facility] [id number] Estefany Bruzaitis [id number] Estefany Bruzaitis 01/06/2025 1 [facility] [id number] Estefany Bruzaitis [id number] Estefany Bruzaitis Notes Date Note Type Note Provider Name and Address Organization Details Recorded Time 07/05/2024 text/html Pt complaining o f chronic sinusitis. She has been on multiple antibiotics without improvement. She has been abusing OTC sprays but now has stopped. She still has green drainage pressure and pain in her face Kristian Cortez MD Attn: [address] [place], [address], [facility] 07/05/2024 11:52:57 07/19/2024 text/html Pt complaining o f pressure and pain around her eyes and forehead. Her nasal congestion has improved with flonase and stopping OTC sprays Kristian Cortez MD Attn: [address] [place], [address], [facility] 07/19/2024 14:11:54 09/06/2024 text/html Pt complaining a bout nasal obstruction and sinus headaches for years. She has been on flonase antihistamines and antibiotics without relief. Ct shows mild chronic sinusitis Kristian Cortez MD Attn: [address] [facility], [place], [address], [facility] 09/06/2024 15:05:58 09/23/2024 text/html her GERD doing f ine on the omeprazole without side effects. She stopped the fluticasone for short period of time it didnot have any effect on her sinus complaints still having a lot of pressure and sinus headaches. Lots of anxiety but that is fairly controlled with the alprazolam she never did get her colonoscopy Sarah Hodge MD Attn: [address] , [place], [address], [facility] 09/23/2024 21:06:06 01/06/2025 text/html her GERD doing f ine on the omeprazole without side effects. She stopped the fluticasone for short period of time it didnot have any effect on her sinus complaints still having a lot of pressure and sinus headaches. Lots of anxiety but that is fairly controlled with the alprazolam she never did get her colonoscopy. Had to put her dog down she is very upset. She wants to quit smoking Sarah Hodge MD Attn: [address] [facility], [place], [address], [facility] 01/07/2025 15:02:16 OBGyn Episode Ob Episode Information Episode Created Date Number of Fetuses Patient Bloodtype Patient rh Status Prepregnancy Weight lbs Domestic Partner Domestic Partner Phone Father Name [employer] Status 04/02/20 21 1 CLOSED Fetus Data First Name Last Name Admitted to NICU Weight (g) Sex Living Outcome Pediatric Complications Fetus ID Race Codes Race Delivery Type 2976.47 0704 M Full Term [id number] Standard Vaginal Delivery Parmjit Calculation Initial Parmjit Date Initial Exam Date Initial Exam Provider Initial Ultrasound Date Last Menstrual Period Date Ultra Sound Weeks Gestation 0 Eighteen To Twenty Week Parmjit Update Ultra Sound Date Fundal Height At Umbil Quickening Date Ultra Sound Latest Weeks Gestation Final Parmjit Confirmed By Final Parmjit Confirmed Date Final Parmjit Date Ultra Sound Latest Days Gestation 0 0 Menstrual History Last Menstrual Date Menses Monthly On Bcp Conception Prior Menses Frequency Hcg Plus Date Menarche Onset Age Delivery Information Delivery Date Delivery Type Labor Anesthesia Weeks Gestation Incision Type Labor Labor Length Hrs Delivered By Post Complications Tubal Sterilization Discharge Date Comments 5 None 41 16 Discharge Information Feeding Method Contraceptive Method Maternal HG B and HCT Levels Ob Episode Information Episode Created Date Number of Fetuses Patient Bloodtype Patient rh Status Prepregnancy Weight lbs Domestic Partner Domestic Partner Phone Father Name [employer]inator [employer] Status 04/02/20 21 1 CLOSED Fetus Data First Name Last Name Admitted to NICU Weight (g) Sex Living Outcome Pediatric Complications Fetus ID Race Codes Race Delivery Type 3146.56 7704 F Full Term [id number] Standard Vaginal Delivery Parmjit Calculation Initial Parmjit Date Initial Exam Date Initial Exam Provider Initial Ultrasound Date Last Menstrual Period Date Ultra Sound Weeks Gestation 0 Eighteen To Twenty Week Parmjit Update Ultra Sound Date Fundal Height At Umbil Quickening Date Ultra Sound Latest Weeks Gestation Final Parmjit Confirmed By Final Parmjit Confirmed Date Final Parmjit Date Ultra Sound Latest Days Gestation 0 0 Menstrual History Last Menstrual Date Menses Monthly On Bcp Conception Prior Menses Frequency Hcg Plus Date Menarche Onset Age Delivery Information Delivery Date Delivery Type Labor Anesthesia Weeks Gestation Incision Type Labor Labor Length Hrs Delivered By Post Complications Tubal Sterilization Discharge Date Comments 7 None 8 Discharge Information Feeding Method Contraceptive Method Maternal HG B and HCT Levels
--- OUTSIDE RECORDS SUMMARY | 2025-01-16 10:40 | XMS_ITS | Clinical Summary ---
Author Organization [facility] Address [address] [place] [address] Phone Care Team Providers Care Browning Processor Name Role Phone Teddy Hodge MD Primary Care Provider [phone] Allergies Active Allergy Reactions Criticality Noted Date Comments Doxycycline Other (see Comments) 10/28/2024 Light-headed, dizziness, weak and shaky. Morphine Itching,Swelling 10/28/2024 Medications ALPRAZolam (XANAX) 1 MG Tablet 3 times daily as needed. 10/21/2024 Active atorvastatin (LIPITOR) 10 MG Tablet Take 10 mg by mouth daily. 09/30/2024 Active famotidine (PEPCID) 20 MG Tablet Take 20 mg by mouth daily. 08/02/2024 Active omeprazole (PriLOSEC) 20 MG CAPSULE DELAYED RELEASE Take 20 mg by mouth daily. 08/05/2024 Active ASHWAGANDHA PO Take 1,400 mg by mouth daily. Active aspirin EC 81 MG Tablet Delayed Response Take 81 mg by mouth daily. 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); Leukocytosis, unspecified type; Thrombocytosis Discharge Disposition: Discharged to home or Selfcare 12/02/2024 Travel 11/30/2024 Travel 11/18/2024 11:30 AM [facility] [address] [place] [address] Alvin Vargas MD Leukocytosis, unspecified type; Thrombocytosis Discharge Disposition: Discharged to home or Selfcare 11/18/2024 Travel 11/17/2024 Travel 11/09/2024 Travel 10/28/2024 8:45 AM CAUL PULLER [facility] [address] [place] [address] Iva Stephenson Maris, Leukocytosis, unspecified type (Primary Dx); Thrombocytosis; Asplenia after surgical procedure Discharge Disposition: Discharged to home or Selfcare 10/28/2024 Travel from Last 3 Months Family History Relation Name Status Comments Father Alive Mother Alive Social History Tobacco Use Types Packs/Day Years Used Date Smoking Tobacco: Former Cigarettes 1 21.2 S tarted: 10/28/2003 Smokeless Tobacco: Never Tobacco Cessation:Counseling Given: Not Answered Alcohol Use Standard Drinks/Week Comments Never 0 (1 standard drink = 0.6 oz pur e alcohol) Comments Unknown Sex and Gender Information Value Date Recorded Sex Assigned at Not on file Legal Sex Female 2:51 PM CAUL PULLER Gender Identity Not on file Sexual Orientation Not on file Last Filed Vital Signs Vital Sign Reading Time Taken Comments Blood Pressure 118/83 12/02/2024 9:40 AM CAUL PULLER Pulse 78 12/02/2024 9:40 AM CAUL PULLER Temperature 36.9 C (98.4 F) 12/02/2024 9:40 AM CAUL PULLER Respiratory Rate 18 12/02/2024 9:40 AM CAUL PULLER Oxygen Saturation 98% 12/02/2024 9:40 AM CAUL PULLER Inhaled Oxygen Concentration - - Weight 84.2 kg (185 lb 11.2 oz) 12/02/2024 9:40 AM CAUL PULLER Height 154.9 cm (5' 1 ) 12/02/2024 9:40 AM CAUL PULLER Body Mass Index 35.09 12/02/2024 9:40 AM CAUL PULLER Plan of Treatment Upcoming Encounters Date Type Department Care Team (Late st Contact Info) Description 11/24/2025 11:00 AM [facility] [address] [place] [address] Iva Stephenson March, PAC [address] [place] [address] Discharge Disposition: Discharged to home or Selfcare 12/01/2025 10:00 AM CAUL PULLER Office Visit [facility] [address] [place] [address] Stanislav Stephensonlene March, PAC [address] [place] [address] Discharge Disposition: Discharged to home or Selfcare Health Maintenance Due Date Last Done Comments Hepatitis C Virus (HCV) Screening 1978 Mammogram 1978 TdaP Immunization 1978 Meningococcal Immunization (ACWY) (1 - Risk 2-dose series) 01/16/1980 Hepatitis B Immunization (1 of 3 - 19+ 3-dose series) 1997 Pneumococcal Immunization Combined (1 of 2 - PCV) 1997 Discussion re Starting/Frequency of Mammograms 2018 Colonoscopy 2023 01/30/2009 Colorectal Cancer Screening 2023 Influenza Immunization (#1) 06/26/202409/25, 09/27/2014, 11/09/2013 SARS-COV-2 Immunization (2023- season) 2024 Respiratory Syncytial Virus (RSV) Immunization (Adult) (1 - 1-dose 75+ series) 2053 01/30/2009 Rotavirus Immunization Aged Out No lo nger eligible based on patient's age to complete this topic Procedures Procedure Name Priority Date/Time Associated Diagnosis Comments CBC WITH AUTO DIFFERENTIAL Routine 11/18/2024 11:34 AM CAUL PULLER Leukocytosis, unspecified type Thrombocytosis FISH BCR/ABL T(9;22) FOR CML/ALL Routine 11/18/2024 11:34 AM CAUL PULLER Leukocytosis, unspecified type Thrombocytosis PERIPHERAL BLOOD, FLOW CYTOMETRY Routine 11/18/2024 11:34 AM CAUL PULLER Leukocytosis, unspecified type Thrombocytosis VITAMIN B12 Routine 11/18/2024 11:34 AM CAUL PULLER Leukocytosis, unspecified type Thrombocytosis IRON,TRANSFERN,CALC.TIB C,%SAT Routine 11/18/2024 11:34 AM CAUL PULLER Leukocytosis, unspecified type Thrombocytosis FREE KAPPA & LAMBDA LIGHT CHAINS SERUM Routine 11/18/2024 11:34 AM CAUL PULLER Leukocytosis, unspecified type Thrombocytosis RETICULOCYTE COUNT (RETIC) Routine 11/18/2024 11:34 AM CAUL PULLER Leukocytosis, unspecified type Thrombocytosis LACTATE DEHYDROGENASE (LD) Routine 11/18/2024 11:34 AM CAUL PULLER Leukocytosis, unspecified type Thrombocytosis IMMUNOFIXATION W/ ELECTROPHORESIS SERUM Routine 11/18/2024 11:34 AM CAUL PULLER Leukocytosis, unspecified type Thrombocytosis JAK2 V617F MUTATION DETECTION, [place] JAK2B Routine 11/18/2024 11:34 AM CAUL PULLER Leukocytosis, unspecified type Thrombocytosis ERYTHROPOIETIN, SERUM, EPO Routine 11/18/2024 11:34 AM CAUL PULLER Leukocytosis, unspecified type Thrombocytosis RHEUMATOID FACTOR (RFQT) QUANT Routine 11/18/2024 11:34 AM CAUL PULLER Leukocytosis, unspecified type Thrombocytosis ERYTHROCYTE SEDIMENTATION RATE (ESR) Routine 11/18/2024 11:34 AM CAUL PULLER Leukocytosis, unspecified type Thrombocytosis CYCLIC CITRULLINATED PEPTIDE 3 Routine 11/18/2024 11:34 AM CAUL PULLER Leukocytosis, unspecified type Thrombocytosis C-REACTIVE PROTEIN (CRP) QUANT Routine 11/18/2024 11:34 AM CAUL PULLER Leukocytosis, unspecified type Thrombocytosis ANTINUCLEAR ANTIBODY (CEE), TITER IF POS Routine 11/18/2024 11:34 AM CAUL PULLER Leukocytosis, unspecified type Thrombocytosis FERRITIN Routine 11/18/2024 11:34 AM CAUL PULLER Leukocytosis, unspecified type Thrombocytosis FOLIC ACID (FOLATE) Routine 11/18/2024 1 1:34 AM CAUL PULLER Leukocytosis, unspecified type Thrombocytosis CMP (COMPREHENSIVE METABOLIC PANEL) Routine 11/18/2024 11:34 AM CAUL PULLER Leukocytosis, unspecified type Thrombocytosis COMPLETE BLOOD COUNT (CBC) WITH DIFF Routine 11/18/2024 11:34 AM CAUL PULLER Leukocytosis, unspecified type Thrombocytosis from Last 3 Months Results * FISH BCR/ABL T(9;22) FOR CML/ALL (11/18/2024 11:34 AM CAUL PULLER) FINAL DIAGNOSIS Normal nuc humberto(ABL1,BCR)x2[19 ] 11/24/2024 12:[address] [facility] at [address] CAUL PULLER Comment Professional component performed by Sofia Sharma, Ph.D., [facility], [address] [place], [place] (CLIA #: [id number]). 11/24/2024 12:[address] [facility] AP CLINICAL INDICATION Leukocytosis, unspecified type Thrombocytosis 11/24/2024 12:[address] [facility] AP METHOD Cells from the sample were cultured and harvested according to standard cytogenetic procedures. Slides were processed using fluorescence in situ hybridization (FISH) methods. The hybridization pattern was scored at the microscope. Images of selected cells were prepared using an image analysis system. No. of Nuclei Scored: 202 No. of Images Captured: 2 11/24/2024 12:40 PM [facility] CYTOGENETICS INTERP Molecular cytogenetic analysis was performed utilizing the BCR::ABL1 dual fusion ([employer] probe, which hybridizes to the (major and minor) breakpoint cluster region (BCR) on the long arm of chromosome 22, at 22q11.2, and the ABL1 oncogene region on the long arm of chromosome 9, at 9q34, to assess for the presence of the [place] chromosome 9;22 translocation. This test will not detect other/additional abnormalities. The abnormal cutoff is 2.3% of nuclei scored. Results revealed a normal hybridization pattern, indicating no BCR::ABL1 rearrangement in the interphase nuclei scored. If a low percentage of positive cells or minimal residual disease is suspected, one may wish to consider analysis by RT-PCR. 11/24/2024 12:[address] [facility] AP CYTOGENETICS DISCLAIMER This test was developed and its performance characteristics determined by the [facility]. It has not been cleared or approved by the U.S. Food and Drug Administration. FDA does not require this test to go through premarket FDA review. This test is used for clinical purposes. It should not be regarded as investigational or for research. This laboratory is certified under the Clinical Laboratory Improvement Amendments (CLIA) as qualifed to perform high complexity clinical laboratory testing. 11/24/2024 12:[address] [facility] Case Report Surgical Pathology Report Case: [id number] Authorizing Provider: Iva Stephenson PAC Collected: 11/18/2024 11:34 AM Ordering Location: [facility] Received: 11/18/2024 11:34 AM [facility] On[facility] Services Pathologist: Sofia Sharma, PhD Specimen: Blood 11/24/2024 12:[address] [facility] Other BLOOD SPECIMEN / Unknown Non-Phlebotomy Collection / Unknown 11/18/2024 11:34 AM CAUL PULLER 11/18/2024 11:34 AM CAUL PULLER Iva Stephenson PAC PATHOLOGY/CYTOLOGY ORDERA BLES Final Result [facility] [address] [place] [address], * CYCLIC CITRULLINATED PEPTIDE 3 (11/18/2024 11:34 AM CAUL PULLER) Pathologist [facility] CCP IGG <0.5 <3.0 U/mL 11/18/2024 11:37 PM CAUL PULLER [facility] Blood Venipuncture / Unknown 11/18/2024 11:34 AM CAUL PULLER 11/18/2024 11:34 AM CAUL PULLER Narrative [facility] - 11/18/2024 11:37 PM CAUL PULLER Antibody testing was performed by multiplex flow immunoassay on the [employer] platform. [facility] IMMUNOLOGY ORDERABLES Fin al Result [facility] [address] [place] [address], [place] * IRON,TRANSFERN,CALC.TIBC,%SAT (11/18/2024 11:34 AM CAUL PULLER) [facility] IRON 152 25 - 156 mcg/dL 11/18/2024 12:11 PM CAUL PULLER [facility] TRANSFERRIN 302 180 - 382 mg/dL 11/18/2024 12:11 PM CAUL PULLER [facility] TIBC, CALCULATED 378 265 - 497 mcg/dL 11/18/2024 12:11 PM CAUL PULLER [facility] % SATURATION * 40 15 - 62 % 11/18/2024 12:11 PM [facility]UL PULLER [facility] Blood Venipuncture / Unknown 11/18/2024 11:34 AM CAUL PULLER 11/18/2024 11:34 AM CAUL PULLER [facility] CHEMISTRY ORDERABLES Emily l Result [facility] [address] [place] [address] * ERYTHROPOIETIN, SERUM, EPO (11/18/2024 11:34 AM CAUL PULLER) Pathologist [facility] ERYTHROPOIETIN, SERUM 5.0 2.6 - 18.5 mIU/mL 11/21/2024 1:39 PM CAUL PULLER [facility] Comment: Test Performed by: [facility] [address] [id number] Cotton Opener: Stefano Martin Ph.D.; CLIA# [id number] Blood Venipuncture / Unknown 11/18/2024 11:34 AM CAUL PULLER 11/18/2024 11:34 AM CAUL PULLER us Iva Stephenson PAC LAB SEND OUTS Final Res ult [facility] [place] * (ABNORMAL) CBC WITH AUTO DIFFERENTIAL (11/18/2024 11:34 AM CAUL PULLER) WBC 13.00(H) 4.00 - 12.00 10(3)/mcL 11/18/2024 11:49 AM [facility] RBC 4.74 3.80 - 5.30 10(6)/[facility] 11/18/2024 11:49 AM [facility] HEMOGLOBIN (HGB) 15.0 12.0 - 15.8 g/dL 11/18/2024 11:49 AM [facility] HEMATOCRIT (HCT) 43.9 36.0 - 47.0 % 11/18/2024 11:49 AM [facility] MCV 92.6 82.0 - 96.0 fL 11/18/2024 11:49 AM [facility] MCH 31.6 26.0 - 34.0 pg 11/18/2024 11:49 AM [facility] MCHC 34.2 31.0 - 36.0 g/dL 11/18/2024 11:49 AM [facility] PLATELET COUNT 626(H) 140 - 440 10(3)/[facility] 11/18/2024 11:49 AM [facility] RDW 13.2 11.8 - 15.5 % 11/18/2024 11:49 AM [facility] MPV 9.1(L) 9.7 - 12.4 fL 11/18/2024 11:49 AM CAUL PULLER [facility] NEUTROPHILS 58.9 47.0 - 73.0 % 11/18/2024 11:49 AM [facility] LYMPHOCYTES 30.8 18.0 - 42.0 % 11/18/2024 11:49 AM [facility] MONOCYTES 7.6 4.0 - 12.0 % 11/18/2024 11:49 AM [facility] EOSINOPHILS 1.6 0.0 - 5.0 % 11/18/2024 11:49 AM CAUL PULLER [facility] BASOPHILS 1.1(H) 0.0 - 1.0 % 11/18/2024 11:49 AM [facility] ABSOLUTE NEUTROPHILS 7.66 1.60 - 7.70 10(3)/[facility] 11/18/2024 11:49 AM [facility] ABSOLUTE LYMPHOCYTES 4.00(H) 1.30 - 3.20 10(3)/[facility] 11/18/2024 11:49 AM [facility] ABSOLUTE MONOCYTES 0.99 0.20 - 1.00 10(3)/[facility] 11/18/2024 11:49 AM [facility] ABSOLUTE EOSINOPHIL 0.21 0.00 - 0.40 10(3)/[facility] 11/18/2024 11:49 AM [facility] ABSOLUTE BASOPHILS 0.14(H) 0.00 - 0.10 10(3)/[facility] 11/18/2024 11:49 AM [facility] NRBC PER 100 WBC 0 11/18/19 11:49 AM [facility] Blood Venipuncture / Unknown 11/18/2024 11:34 AM [facility] 11/18/2024 11:34 AM [facility] Iva Stephenson PAC HEMATOLOGY ORDERABLES Fin al Result [facility] [address] [place] [address] * PERIPHERAL BLOOD, FLOW CYTOMETRY (11/18/2024 11:34 AM CAUL PULLER) FINAL DIAGNOSIS Peripheral blood, flow cytometric analysis: - No abnormal lymphoid or progenitor cell population is detected. 1:07 PM [facility] at [address] CAUL PULLER Clinical Information Mild lymphocytosis 1:07 PM [facility] Specimen Source Received in an EDTA anticoagulated tube is 1 mL peripheral blood. 1:07 PM [facility] Microscopic Description Peripheral blood smear review shows a heterogeneous WBC population. Specimen processed and evaluated at [facility], [place], [place]. This document was completed utilizing speech recognition software. Grammatical errors, random word insertions, pronoun errors, and incomplete sentences are an occasional consequence of this system due to software limitations, ambient noise, and hardware issues. Any formal questions or concerns about the content, text or information contained within the body of this dictation should be directly addressed to the provider for clarification. 1:07 PM [facility] Immunophenotypic Findings Flow cytometric analysis shows a heterogeneous cellular population. Blasts are not increased. Immunophenotypically unremarkable T-cells (CD4:CD8 = 4.5) and polyclonal B-cells are present. CELL POPULATIONS: 52% granulocytes, 6% monocytes, 21% T-cells, 3% B-cells, <1% blasts. 1:07 PM [facility] Phenotyping Markers Utilized Flow markers performed (23): CD2, CD3, CD4, CD5, CD7, CD8, CD10, CD13, CD15, CD19, CD20, CD33, CD34, CD38, CD45, CD56, CD117, CD123, CD200, kappa, lambda, HLA-DR, TCR gamma/delta This test was developed and its performance characteristics determined by [facility]. It has not been cleared or approved by the U.S. Food and Drug Administration. 1:07 PM [facility] Case Report Flow Cytometry Repor t Case: [id number] Authorizing Provider: Iva Stephenson PAC Collected: 11/18/2024 11:34 AM Ordering Location: [facility] Received: 11/18/2024 11:34 AM [facility] On[facility] Services Pathologist: Jimbo Uriostegui MD Specimen: Blood 1:[address] [facility] Blood BLOOD SPECIMEN / Unknown Venipuncture / Unknown 11/18/2024 11:34 AM CAUL PULLER 11/18/2024 11:34 AM CAUL PULLER us Ivaphuong Stephenson PAC PATHOLOGY/CYTOLOGY ORDERA BLES Final Result [facility] [address] [place] [address], * JAK2 V617F MUTATION DETECTION, [place] JAK2B (11/18/2024 11:34 AM CAUL PULLER) JAK2 RESULT see interpretation 9:54 AM CAUL PULLER [facility] JAK2 V617F MUTATION DETECTION SEE NOTE 9:54 AM [facility] Comment: Peripheral blood, JAK2 V617F mutation analysis: Negative for JAK2 V617F. A negative [id number] test result does not exclude the possibility of a myeloproliferative neoplasm (MPN). If clinical suspicion is high for primary myelofibrosis (PMF) or essential thrombocythemia (ET), consider additional testing for CALR with reflex to MPL (test ID: [id number]). If clinical suspicion is high for polycythemia vera, the test JAK2 Exon 12 and Other Non-V617F Mutational Detection (test ID: JAKXB or JAKXM) could be considered. Clinicopathologic correlation is recommended for a definitive diagnosis. Signing Pathologist: Gregorio Beyer, Ph.D. ADDITIONAL INFORMATION Method summary - JAK2 V617F analysis: Quantitative, allele-specific polymerase chain reaction (PCR) assay was performed using extracted genomic DNA to evaluate for the point mutation causing JAK2 V617F. The analytic sensitivity of this assay has been determined at 0.06% (see [facility] Interpretive Handbook for method details). This test was developed and its performance characteristics determined by [facility] in a manner consistent with CLIA requirements. This test has not been cleared or approved by the U.S. Food and Drug Administration. Test Performed by: [facility] - [address] [address] Cotton Opener: Stefano Martin Ph.D.; CLIA# [id number] Blood Venipuncture / Unknown 11/18/2024 11:34 AM CAUL PULLER 11/18/2024 11:34 AM CAUL PULLER [facility] LAB SEND OUT GENETIC Emily l Result [facility] US * FREE KAPPA & LAMBDA LIGHT CHAINS SERUM (11/18/2024 11:34 AM CAUL PULLER) Free [place] Lt Chn 13.27 3.30 - 19.40 mg/L 11/21/2024 9:48 AM CAUL PULLER [facility] Free Lambda Lt Chn 12.09 5.71 - 26.30 mg/L 11/21/2024 9:[address] [facility] free darvin bertrand ratio 1.10 0.26 - 1.65 11/21/2024 9:[address] [facility] Blood Venipuncture / Unknown 11/18/2024 11:34 AM CAUL PULLER 11/18/2024 11:34 AM CAUL PULLER [facility] CHEMISTRY ORDERABLES Emily l Result Performing Organization Address City/[facility]/ZIP Co de Phone Number [facility] [address] [place] [address], [place] * VITAMIN B12 (11/18/2024 11:34 AM CAUL PULLER) Pathologist [facility] VITAMIN B12 791 213 - 816 pg/mL 11/18/2024 12:40 PM CAUL PULLER [facility] Blood Venipuncture / Unknown 11/18/2024 11:34 AM CAUL PULLER 11/18/2024 11:34 AM CAUL PULLER us Iva Maris Stephenson PAC CHEMISTRY ORDERABLES Emily l Result Performing Organization Address [facility] Co de Phone Number [facility] [address] [place] [address] * ERYTHROCYTE SEDIMENTATION RATE (ESR) (11/18/2024 11:34 AM CAUL PULLER) ESR (SED RATE, ERYTHROCYTE SEDIMENTATION RATE) <1 <20 mm/h 11/18/2024 11:55 AM CAUL PULLER [facility] Comment: Patients presenting with increased level of fibrinogen, gamma globulins, or abnormally shaped RBCs could affect the results for the erythrocyte sedimentation rate (ESR). Results should be clinically correlated. Blood Venipuncture / Unknown 11/18/2024 11:34 AM CAUL PULLER 11/18/2024 11:34 AM CAUL PULLER [facility] HEMATOLOGY ORDERABLES Fin al Result Performing Organization Address [facility] de Phone Number [facility] [place] [address] * RHEUMATOID FACTOR (RFQT) QUANT (11/18/2024 11:34 AM CAUL PULLER) Pathologist [facility] RHEUMATOID FACTOR QT <13 <30 IU/mL 11/18/2024 12:09 PM CAUL PULLER [facility] Blood Venipuncture / Unknown 11/18/2024 11:34 AM CAUL PULLER 11/18/2024 11:34 AM CAUL PULLER Narrative [facility] - 11/18/2024 12:09 PM CAUL PULLER RHEUMATOID FACTORS CAN BE FOUND IN RHEUMATOID ARTHRITIS, SYPHILIS, VIRAL INFECTIONS, LEPROSY, CHRONIC LIVER DISEASE, NEOPLASMS, AND OTHER INFLAMMATORY CONDITIONS. RF PREVALENCE ALSO INCREASES WITH AGE. THUS A POSITIVE TEST IS NOT RESTRICTED TO RA. CONVERSELY, A NEGATIVE TEST DOES NOT RULE OUT RA, RHEUMATOID FACTORS ARE NOT DETECTABLE IN 10% OF ADULTS WITH THE DISEASE. [facility] PAC CHEMISTRY ORDERABLES Emily l Result Performing Organization Address [facility] Co de Phone Number [facility] [place] [address] * RETICULOCYTE COUNT (RETIC) (11/18/2024 11:34 AM CAUL PULLER) Pathologist [facility] RETICULOCYTES 1.9 0.5 - 2.0 % 11/18/2024 11:49 AM CAUL PULLER [facility] Blood Venipuncture / Unknown 11/18/2024 11:34 AM CAUL PULLER 11/18/2024 11:34 AM CAUL PULLER [facility] HEMATOLOGY ORDERABLES Fin al Result [facility] [address] [place] [address] * LACTATE DEHYDROGENASE (LD) (11/18/2024 11:34 AM CAUL PULLER) Pathologist [facility] LDH 187 125 - 220 U/L 11/18/2024 12:11 PM CAUL PULLER [facility] Blood Venipuncture / Unknown 11/18/2024 11:34 AM CAUL PULLER 11/18/2024 11:34 AM CAUL PULLER [facility] CHEMISTRY ORDERABLES Emily l Result [facility] [address] [place] [address] * (ABNORMAL) IMMUNOFIXATION W/ ELECTROPHORESIS SERUM (11/18/2024 11:34 AM CAUL PULLER) Pathologist [facility] TOTAL PROTEIN 7.0 6.0 - 8.0 g/dL 11/22/2024 2:[address] [facility] % ALBUMIN 62.6 55.8 - 66.7 % 11/22/2024 2:[address] [facility] ALBUMIN SERUM 4.4 2.5 - 5.4 g/dL 11/22/2024 2:[address] [facility] % ALPHA 1 GLOBULIN 1.9(L) 2.9 - 4.9 % 11/22/2024 2:31 PM [facility] ALPHA 1 0.1(L) 0.2 - 0.4 g/dL 11/22/2024 2:31 PM [facility] % ALPHA 2 GLOBULIN 9.6 7.1 - 11.8 % 11/22/2024 2:31 PM [facility] ALPHA 2 0.7 0.5 - 1.0 g/dL 11/22/2024 2:31 PM [facility] % BETA 12.8 8.4 - 13.1 % 11/22/2024 2:31 PM [facility] BETA-GLOBULIN 0.9 0.5 - 1.1 g/dL 11/22/2024 2:31 PM [facility] % GAMMA GLOBULIN 13.1 11.1 - 18.8 % 11/22/2024 2:31 PM [facility] GAMMA 0.9 0.7 - 1.5 g/dL 11/22/2024 2:31 PM [facility] IMMUNOGLOBULIN G 894 552 - 1,631 mg/dL 11/22/2024 2:31 PM [facility] IMMUNOGLOBULIN A 116 65 - 421 mg/dL 11/22/2024 2:31 PM [facility] IMMUNOGLOBULIN M 112 33 - 293 mg/dL 11/22/2024 2:31 PM [facility] INTERPRETATION SERUM No abnormal protein band is detected by serum protein electrophoresis. Serum immunofixation electrophoresis is negative for monoclonal immunoglobulins. Reviewed by Lis Kim, Ph.D. 11/22/2024 2:31 PM [facility] A/G RATIO, SERUM 1.7 11/22/19 2:31 PM [facility] Blood Venipuncture / Unknown 11/18/2024 11:34 AM CAUL PULLER 11/18/2024 11:34 AM [address] [facility] - 11/22/2024 2:31 PM CAUL PULLER Reviewed by Jimbo Uriostegui M.D. [facility] PAC CHEMISTRY ORDERABLES Emily l Result [facility] [address] [place] [address], * FOLIC ACID (FOLATE) (11/18/2024 11:34 AM CAUL PULLER) FOLATE 16.0 7.0 - 31.4 ng/mL 11/18/2024 12:40 PM CAUL PULLER [facility] IS THE PATIENT REQUIRED TO BE FASTING? No 11/18/2024 12:40 PM CAUL PULLER [facility] Blood Venipuncture / Unknown 11/18/2024 11:34 AM CAUL PULLER 11/18/2024 11:34 AM CAUL PULLER [facility] PAC CHEMISTRY ORDERABLES Emily l Result Performing Organization Address [facility]/ZIP Co de Phone Number [facility] [place] [address] * FERRITIN (11/18/2024 11:34 AM CAUL PULLER) Pathologist [facility] FERRITIN 96 5 - 204 ng/mL 11/18/2024 12:26 PM CAUL PULLER [facility] Blood Venipuncture / Unknown 11/18/2024 11:34 AM CAUL PULLER 11/18/2024 11:34 AM CAUL PULLER [facility] PAC CHEMISTRY ORDERABLES Emily l Result [facility] [place] [address] * (ABNORMAL) CMP (COMPREHENSIVE METABOLIC PANEL) (11/18/2024 11:34 AM CAUL PULLER) SODIUM 140 136 - 145 mmol/L 11/18/2024 12:11 PM CAUL PULLER [facility] POTASSIUM 3.6 3.5 - 5.1 mmol/L 11/18/2024 12:11 PM CAUL PULLER [facility] CHLORIDE 110(H) 98 - 107 mmol/L 11/18/2024 12:11 PM [facility] CO2, VENOUS 21(L) 22 - 30 mmol/L 11/18/2024 12:11 PM [facility] ANION GAP 12.6 <18.0 mmol/L 11/18/2024 12:11 PM [facility] GLUCOSE 103(H) 70 - 99 mg/dL 11/18/2024 12:11 PM [facility] BUN 9 5 - 18 mg/dL 11/18/2024 12:11 PM [facility] CREATININE, BLOOD 0.89 0.60 - 1.00 mg/dL 11/18/2024 12:11 PM [facility] BUN/CREATININE RATIO 10(L) 12 - 20 ratio 11/18/2024 12:11 PM [facility] TOTAL PROTEIN 7.9 6.0 - 8.0 g/dL 11/18/2024 12:11 PM [facility] ALBUMIN 4.8 3.5 - 5.0 g/dL 11/18/2024 12:11 PM [facility] A/G RATIO 1.5 1.0 - 2.2 11/18/2024 12:11 PM [facility] CALCIUM 9.1 8.7 - 10.5 mg/dL 11/18/2024 12:11 PM [facility] T BILI 0.5 0.2 - 1.2 mg/dL 11/18/2024 12:11 PM [facility] SGOT (AST) 31 6 - 42 U/L 11/18/2024 12:11 PM [facility] SGPT (ALT) 41 6 - 55 U/L 11/18/2024 12:11 PM [facility] ALKALINE PHOSPHATASE 75 40 - 150 U/L 11/18/2024 12:11 PM [facility] IS THE PATIENT REQUIRED TO BE FASTING? No 11/18/2024 12:11 PM [facility] GFR, ESTIMATED >60 >=60 11/18/2024 12:11 PM CAUL PULLER [facility] Comment: Creatinine Clearance is the preferred criteria for selecting drug dose adjustments in renally impaired patients. The GFR is provided as additional pertinent clinical information. GFR is reported in mL/min/1.73 sq m. Calculation based on the Chronic Kidney Disease Epidemiology Collaboration (CKD- EPI) equation refit without adjustment for race. GFR, EST. >60 >=60 025 12:11 PM CAUL PULLER [facility] GFR, EST. NONAFRICAN >60 >=60 11/18/2024 12:11 PM CAUL PULLER [facility] Blood Venipuncture / Unknown 11/18/2024 11:34 AM CAUL PULLER 11/18/2024 11:34 AM CAUL PULLER [facility] PAC CHEMISTRY ORDERABLES Emily l Result Performing Organization Address City/[facility]/ZIP Co de Phone Number [facility] [place] [address] * C-REACTIVE PROTEIN (CRP) QUANT (11/18/2024 11:34 AM CAUL PULLER) [facility] C-REACTIVE PROTEIN <0.10 <0.50 mg/dL 11/18/2024 1:18 PM CAUL PULLER [facility] Blood Venipuncture / Unknown 11/18/2024 11:34 AM CAUL PULLER 11/18/2024 11:34 AM CAUL PULLER [facility] PAC CHEMISTRY ORDERABLES Emily l Result [facility] [place] [address] * ANTINUCLEAR ANTIBODY (CEE), TITER IF POS (11/18/2024 11:34 AM CAUL PULLER) Pathologist [facility] CEE SCREEN Negative Negative titer 11/21/2024 1:[address] [facility] Comment: Antinuclear autoantibodies not detected by IFA at a 1:80 screening dilution of HEp-2 cells. CEE TITER Negative Negative, See comment, Not Applicable titer 11/21/2024 1:17 PM [facility]ULL[facility] Comment: Antinuclear autoantibodies not detected by IFA at a 1:80 screening dilution of HEp-2 cells. CEE PATTERN NOT APPLICABLE 11/21/2024 1:17 PM [facility]ULL[facility] Blood Venipuncture / Unknown 11/18/2024 11:34 AM CAUL PULLER 11/18/2024 11:34 AM CAUL PULLER us Iva Stephenson PAC IMMUNOLOGY ORDERABLES Fin al Result [facility] [address] [place] [address], from Last 3 Months Insurance Care Teams [employer] Relationship Specialty Start Date End Date Teddy Hodge MD [address] [place] [address] PCP - General Internal Medicine 10/10/24
[2025-01-16 10:43] VITALS: BP 97/75; PULSE 73; RESP 14; O2SAT 97
[2025-01-16 10:53] VITALS: BP 108/83; PULSE 73; RESP 15; O2SAT 100
[2025-01-16 11:03] VITALS: BP 101/86; PULSE 65; RESP 14; O2SAT 100
--- NOTE | 2025-01-16 11:03 | WPDANESPN ---
Anes - Prog Note Post-Op Date/Time: 01/16/25 11:03 Cardiovascular status: normal Respiratory status: normal Airway patency: baseline Mental status: baseline Post-Op hydration status: normal Vital Signs: Last Vital Signs Temp 36.2 C L 01/16/25 09:46 Pulse 73 01/16/25 10:43 Resp 14 01/16/25 10:43 BP 97/75 L 01/16/25 10:43 Pulse Ox 97 01/16/25 10:43 O2 Del Method Room Air 01/16/25 10:43 Pain Score (VAS): 0/10 I/O: Intake & Output 01/15/25 01/16/25 01/16/25 23:59 07:59 15:59 Intake Total 300 Balance 300 Patient Feedback: Patient satisfied with anesthetic care.
== END 2025-01-16 11:14 | disposition home or self-care (01) ==
PROVIDERS: PCP Internal Medicine; Visit Provider Internal Medicine Gastroenterology
PROC: 0DJD8ZZ Inspection of Lower Intestinal Tract, Via Natural or Artificial Opening Endoscopic (ICD-10-PCS; CPT 45378; principal; 2025-01-16 11:00)
DX: Z12.11 Encounter for screening for malignant neoplasm of colon (principal); K64.8 Other hemorrhoids
CPT/HCPCS: 45378